=== PATIENT | female | born 1995 | race American Indian/Alaskan Native ===

== ENCOUNTER 2019-03-14 12:19 | Inpatient (IN) | payer MEDICAID ==
[2019-03-14] MEDS ORDERED: LACTATED RINGERS 1,000 ML IV ONE (12:29)
[2019-03-14 14:06] LABS: Bacteria,Urine 1+ /HPF (Negative); Bilirubin,Urine NEG (Negative); Blood,Urine NEG (Negative); Color,Urine Yellow (Yellow); Mucus,Urine FEW /HPF; Protein,Urine <15 mg/dL mg/dL (Negative); Urobilinogen,Urine < 2.0 mg/dL (<2.0)
[2019-03-14] MEDS ORDERED: BRETHINE SUB-Q ONE ×2 (14:24→16:16)
[2019-03-14 14:28] LABS: Amphetamine Screen,Urine PRESUMPTIVE NEGATIVE; Benzodiazepines Screen,Urine PRESUMPTIVE NEGATIVE; Cannabinoid Screen,Urine PRESUMPTIVE NEGATIVE; Cocaine Screen,Urine PRESUMPTIVE NEGATIVE; Methadone Screen,Urine PRESUMPTIVE NEGATIVE; Opiate Screen,Urine PRESUMPTIVE NEGATIVE
[2019-03-14] MEDS: LACTATED RINGERS 1,000 ML IV SCH (14:50)
[2019-03-14] MEDS ORDERED: CELESTONE SOLUSPAN IM ONE (15:38)
[2019-03-14] MEDS ORDERED: COLACE PO PRN (15:54)
[2019-03-14] MEDS ORDERED: TYLENOL PO PRN (15:54)
--- NOTE | 2019-03-14 15:59 | History and Physical Report ---
<DENISE PARK - Last Filed: 03/14/19 20:14> History of Present Illness Date of examination: 03/14/19 (walk-in prev c/s laboring; receiving care in [place]) Chief complaint: presents to Triage with c/o ctx History of present illness: Pt states she started her PNC in [place] in the first trimester and then moved to [place] in September. They established her EDC 04/25/19. SUKH signed and faxed to the office in [place]. Pt states her last PNV was 2 weeks ago. She has a doctors visit [facility] with a local OBGYN on 03-26-19 [facility] 2015 ectopic Lap done tube was saved 2017 section failure to dilate male baby medical HX: born with Hep B ( pt's mom is a carrier) Surgery hx: section Lap for ectopic Denies smoking, drinking, drug use Denies any other STD hx Past History - Obstetrical History Expected Date of Delivery: 04/25/19 Actual Gestation: 34 Week(s) 0 Day(s) : 3 Para: 1 Hx # Term Pregnancies: 1 Number of Pregnancies: 0 Spontaneous Abortions: 0 Induced : 1 (ectopic) Number of Living Children: 1 Medications and Allergies Allergies Allergy/AdvReac Type Severity Reaction Status Date / Time No Known Allergies Allergy Verified 03/14/19 12:26 Home Medications Medication Instructions Recorded Confirmed Last Taken Type Ascorbic Acid [Vitamin C] 0 mg PO QDAY 03/14/19 03/14/19 03/14/19 09:00 History 1 Iron [Iron 18 MG TAB] 18 mg PO QDAY 03/14/19 03/14/19 03/14/19 09:00 History 1 Vit-Fe Fumar-FA [ 1 tab PO QDAY 03/14/19 03/14/19 03/14/19 09:00 History Vitamin] Active Meds: Active Medications Acetaminophen (Tylenol) 650 mg PO Q4H PRN PRN Reason: Pain MILD(1-3)/Fever >100.5/RODRIGUEZ Betamethasone Acet/Betameth SodPhos (Celestone Soluspan) 12 mg IM Q24HR [facility] Stop: 03/16/19 10:01 Docusate Sodium (Colace) 100 mg PO Q12H PRN PRN Reason: Constipation Lactated Ringer's (Lactated Ringers) 1,000 mls @ 150 mls/hr IV DIRECT LEIGH ANN Last Admin: 03/14/19 14:50 Dose: 150 mls/hr Documented by: Multivitamins/Iron/Calcium ( Vitamin) 1 each PO QDAY LEIGH ANN - Vital Signs Vital signs: Vital Signs Pulse BP 84 124/68 03/14/19 13:22 03/14/19 13:22 Temp Pulse Resp BP Pulse Ox 98.3 F 70 18 111/57 03/14/19 14:56 03/14/19 15:03 03/14/19 14:56 03/14/19 15:03 - Physical Exam Breasts: Positive: deferred Cardiovascular: Regular rate, Normal S1, Normal S2 Lungs: Positive: Normal air movement Abdomen: Positive: normal appearance, soft, normal bowel sounds. Negative: distention, tenderness Vulva: both: normal Vagina: Positive: normal moisture. Negative: discharge Cervix: Negative: lesion, discharge Uterus: Positive: normal size, normal contour Adnexa: both: normal Anus/Rectum: Positive: normal perianal skin, heme negative. Negative: rectal mass, hemorrhoids Extremities: Positive: normal Deep Tendon Reflex Grade: Normal +2 - Obstetrical FHR: category 1 Uterine Contraction Monitor Mode: External Cervical Dilatation: 1.5 (pt does not tolerate cervical exam) Cervical Effacement Percentage: 10 (pt c/o pressure) station: -3 Uterine Contraction Frequency (min): q2-4 Uterine Contraction Pattern: Regular Uterine Tone Measurement Phase: Resting Uterine Contraction Intensity: Moderate Results Result Diagrams: 03/14/19 13:00 03/14/19 13:00 All other labs normal. Assessment and Plan 24yo @ 34 weeks with ctx Pt had OB care in [place] Had not established care here yet. Per lace stripper she noted some cervical chg. Pt ad mitted to APU for BMZ and evaluation. Ctx have spaced out after fluids and Terb X 2. US BPP 6/8 NST is reactive 8/10 BPP. Pt is a previous section. made aware of pt and status. Will continue observation. SUKH faxed to OB practice in [place]. Pt will remain APU until 2nd dose of BMZ is given tomorrow @ 1600. <STEVEN KAY - Last Filed: 03/14/19 22:15> Medications and Allergies Active Meds: Active Medications Acetaminophen (Tylenol) 650 mg PO Q4H PRN PRN Reason: Pain MILD(1-3)/Fever >100.5/RODRIGUEZ Betamethasone Acet/Betameth SodPhos (Celestone Soluspan) 12 mg IM Q24HR LEIGH ANN Stop: 03/15/19 16:01 Docusate Sodium (Colace) 100 mg PO Q12H PRN PRN Reason: Constipation Lactated Ringer's (Lactated Ringers) 1,000 mls @ 150 mls/hr IV DIRECT LEIGH ANN Last Admin: 03/14/19 14:50 Dose: 150 mls/hr Documented by: Multivitamins/Iron/Calcium ( Vitamin) 1 each PO QDAY LEIGH ANN Zolpidem Tartrate (Ambien) 10 mg PO QHS PRN PRN Reason: Insomnia - Vital Signs Vital signs: Vital Signs Pulse BP 84 124/68 03/14/19 13:22 03/14/19 13:22 Temp Pulse Resp BP Pulse Ox 97.1 F L 104 H 18 136/67 03/14/19 19:32 03/14/19 21:58 03/14/19 19:32 03/14/19 21:58 Results Result Diagrams: 03/14/19 13:00 03/14/19 13:00 Abnormal lab results 03/14/19 03/14/19 Range/Units 13:00 13:00 MCH 27 L (28-32) pg RDW 16.3 H (13.2-15.2) % [place] % (Auto) 7.6 H (0.0-7.3) % Creatinine 0.5 L (0.7-1.2) mg/dL Alkaline Phosphatase 134 H (35-129) units/L Albumin 3.7 L (3.9-5) g/dL All other labs normal. Assessment and Plan - Patient Problems (1) 34 weeks gestation of Current Visit: Yes Status: Acute (2) contractions Current Visit: Yes Status: Acute Plan to address problem: Continues to be uncomfortable with contractions, will start MgSO4 tocolysis with steroid therapy. MgSO4 side effects and risks explained. Plan of care discussed with patient, questions encouraged and answered. She voiced understanding and agrees with plan of care. (3) Hepatitis B carrier Current Visit: Yes Status: Acute Plan to address problem: See scanned labs in EMR LFT's normal here (4) Previous delivery, antepartum Current Visit: Yes Status: Acute
[2019-03-14 16:21] LABS: Basophils % (Auto) 0.6 % (0.0-1.8); Eosinophils % (Auto) 0.4 % (0.0-4.3); Hematocrit 34.7 % (30.3-42.9); Hemoglobin 11.4 gm/dl (10.1-14.3); Lymphocytes # (Auto) 1.3 K/mm3 (1.2-5.4); Lymphocytes % (Auto) 23.1 % (13.4-35.0); Mean Corpuscular HGB Conc 33 % (30-34); Mean Corpuscular Volume 83 fl (79-97); Monocytes # (Auto) 0.4 K/mm3 (0.0-0.8); Monocytes % (Auto) 7.6 % (0.0-7.3); Platelet Count 158 K/mm3 (140-440); Red Blood Count 4.19 M/mm3 (3.65-5.03); Red Cell Distribution Width 16.3 % (13.2-15.2)
[2019-03-14 16:37] LABS: Alanine Aminotransferase 19 units/L (7-56); Albumin 3.7 g/dL (3.9-5); BUN/Creatinine Ratio 14; Blood Urea Nitrogen 7 mg/dL (7-17); Hemolysis Index 0
[2019-03-14 16:59] LABS: Hepatitis C Virus Antibody Non-Reactive (NonReactive)
--- NOTE | 2019-03-14 18:53 | Ultrasound Report ---
PROCEDURE: US OB >= 14 WEEKS FETUS, US OB BPP WO NON-STRESS TECHNIQUE: Obstetrical sonographic imaging was performed HISTORY: labor COMPARISONS: None FINDINGS: Images demonstrate single live intrauterine gestation in cephalic presentation. By the end of the exa m, fetus is breech. Amniotic fluid is visually within normal limits. Fundal placenta grade 2. heart rate measures 144 bpm. Cervical length 3.6 cm. anatomic survey as follows: Choroid plexus, lateral ventricle, stomach, kidneys, bladder, diaphragm, four-chamber heart, heart, t hree-vessel cord, abdominal CORD insertion, spine. Following anatomic structures are not demonstrated due to lie-cerebellum and cisterna magna. measurements as follows: Biparietal diameter 34 weeks 4 days Head circumference 34 weeks 3 days Abdominal circumference 34 weeks 1 day Femur length 33 weeks 0 days HC/AC 1.0 Cephalic index 80.2. Estimated weight 2302 g. Clinical age 34 weeks 0 days Average sonographic gestational age 34 weeks 0 days with estimated due date 04/25/2019. Biophysical profile scores 2 for movements, posture and tone and qualitative WILBER. b reathing movements scored a 0. IMPRESSION: Biophysical profile score 6/8, 0 for breathing movements. Single live intrauterine gestation at 34 weeks 0 days, estimated due date 04/25/2019. heart rate 144 bpm. Cervical length 3.6 cm. Cephalic presentation changed to breech by the end of the exam. Fundal grade 2 placenta. Amniotic fluid visually within normal limits. This document is electronically signed by Joyce Tse MD., March 14 2019 06:52:00 PM ET
[2019-03-14] MEDS ORDERED: AMBIEN PO PRN (21:54)
[2019-03-14] MEDS ORDERED: MAGNESIUM SULFATE 4GM/100ML 4 GM/100 ML BAG IV ONE (22:04)
[2019-03-14] MEDS: MAGNESIUM SULFATE 40GM/1000ML 40 GM/1,000 ML BAG IV SCH (22:52)
--- NOTE | 2019-03-15 07:52 | Progress Note ---
Assessment and Plan 24y/o @ 34 weeks; currently w/o complaints. She denies feeling ctx, denies leaking or bleeding. Second dose of BMZ due 1600 today. Plan to continue mag sulfate x 24 h after second dose of steroids. Last mag level 4.6. encouraged pt to notify nurse for any s/s labor. Continue current management. - Patient Problems (1) 34 weeks gestation of Current Visit: Yes Status: Acute (2) contractions Current Visit: Yes Status: Acute (3) Previous delivery, antepartum Current Visit: Yes Status: Acute Subjective - Subjective Date of service: 03/15/19 Principal diagnosis: IUP @ 34w; prev c/s x 1, labor Patient reports: movement normal, no new complaints, no loss of fluid, no vaginal bleeding, no contractions Objective - Vital Signs Vital Signs: Vital Signs - 12hr 03/14/19 03/14/19 03/14/19 20:06 20:30 20:59 Temperature Pulse Rate 95 H 88 93 H Respiratory Rate Blood Pressure 117/57 131/67 123/57 O2 Sat by Pulse Oximetry 03/14/19 03/14/19 03/14/19 21:29 21:58 22:25 Temperature Pulse Rate 100 H 104 H 96 H Respiratory Rate Blood Pressure 134/69 136/67 133/64 O2 Sat by Pulse Oximetry 03/14/19 03/14/19 03/14/19 22:28 22:30 22:31 Temperature 97.8 F Pulse Rate 91 H 93 H Respiratory 18 Rate Blood Pressure 123/59 123/63 O2 Sat by Pulse Oximetry 03/14/19 03/14/19 03/14/19 22:33 22:35 22:38 Temperature 97.1 F L 97.3 F L Pulse Rate 96 H Respiratory 18 16 Rate Blood Pressure 127/63 O2 Sat by Pulse Oximetry 03/14/19 03/14/19 03/14/19 22:40 22:41 22:45 Temperature Pulse Rate 100 H 100 H 102 H Respiratory Rate Blood Pressure 122/64 129/63 O2 Sat by Pulse 98 93 Oximetry 03/14/19 03/14/19 03/14/19 22:46 22:48 22:51 Temperature 97.4 F L Pulse Rate 104 H 100 H Respiratory 18 Rate Blood Pressure 135/62 O2 Sat by Pulse 98 97 Oximetry 03/14/19 03/14/19 03/14/19 22:56 23:01 23:06 Temperature Pulse Rate 95 H 99 H 96 H Respiratory Rate Blood Pressure O2 Sat by Pulse 98 98 98 Oximetry 03/14/19 03/14/19 03/14/19 23:09 23:11 23:16 Temperature Pulse Rate 93 H 105 H 90 Respiratory Rate Blood Pressure 123/64 O2 Sat by Pulse 98 98 Oximetry 03/14/19 03/14/19 03/14/19 23:21 23:24 23:26 Temperature Pulse Rate 98 H 85 93 H Respiratory Rate Blood Pressure 115/59 O2 Sat by Pulse 99 99 Oximetry 03/14/19 03/14/19 03/14/19 23:31 23:36 23:40 Temperature Pulse Rate 88 81 81 Respiratory Rate Blood Pressure 128/62 O2 Sat by Pulse 98 99 Oximetry 03/14/19 03/14/19 03/14/19 23:41 23:46 23:51 Temperature Pulse Rate 81 81 84 Respiratory Rate Blood Pressure O2 Sat by Pulse 99 99 100 Oximetry 03/14/19 03/14/19 03/15/19 23:54 23:56 00:01 Temperature Pulse Rate 78 83 87 Respiratory Rate Blood Pressure 128/62 O2 Sat by Pulse 100 100 Oximetry 03/15/19 03/15/19 03/15/19 00:06 00:09 00:11 Temperature Pulse Rate 83 86 96 H Respiratory Rate Blood Pressure 129/69 O2 Sat by Pulse 99 98 Oximetry 03/15/19 03/15/19 03/15/19 00:16 00:21 00:24 Temperature Pulse Rate 79 83 83 Respiratory Rate Blood Pressure 124/67 O2 Sat by Pulse 98 99 Oximetry 03/15/19 03/15/19 03/15/19 00:26 00:31 00:36 Temperature Pulse Rate 90 86 81 Respiratory Rate Blood Pressure O2 Sat by Pulse 100 100 100 Oximetry 03/15/19 03/15/19 03/15/19 00:41 00:46 00:51 Temperature Pulse Rate 85 86 84 Respiratory Rate Blood Pressure 110/60 O2 Sat by Pulse 100 99 99 Oximetry 03/15/19 03/15/19 03/15/19 00:54 00:56 01:01 Temperature Pulse Rate 83 80 91 H Respiratory Rate Blood Pressure 106/58 O2 Sat by Pulse 100 100 Oximetry 03/15/19 03/15/19 03/15/19 01:06 01:10 01:11 Temperature Pulse Rate 91 H 84 83 Respiratory Rate Blood Pressure 117/56 O2 Sat by Pulse 96 100 Oximetry 03/15/19 03/15/19 03/15/19 01:16 01:21 01:24 Temperature Pulse Rate 83 82 89 Respiratory Rate Blood Pressure 117/66 O2 Sat by Pulse 100 99 88 Oximetry 03/15/19 03/15/19 03/15/19 01:26 01:31 01:36 Temperature Pulse Rate 83 77 85 Respiratory Rate Blood Pressure O2 Sat by Pulse 99 98 98 Oximetry 03/15/19 03/15/19 03/15/19 01:39 01:41 01:46 Temperature Pulse Rate 83 86 90 Respiratory Rate Blood Pressure 112/55 O2 Sat by Pulse 93 99 Oximetry 03/15/19 03/15/19 03/15/19 01:51 01:54 01:56 Temperature Pulse Rate 87 118 H 86 Respiratory Rate Blood Pressure 127/58 O2 Sat by Pulse 98 97 Oximetry 03/15/19 03/15/19 03/15/19 02:01 02:06 02:10 Temperature Pulse Rate 78 77 80 Respiratory Rate Blood Pressure 124/72 O2 Sat by Pulse 98 97 Oximetry 03/15/19 03/15/19 03/15/19 02:11 02:16 02:21 Temperature Pulse Rate 83 80 75 Respiratory Rate Blood Pressure O2 Sat by Pulse 100 99 99 Oximetry 03/15/19 03/15/19 03/15/19 02:26 02:31 02:36 Temperature Pulse Rate 78 82 78 Respiratory Rate Blood Pressure 110/66 O2 Sat by Pulse 99 97 96 Oximetry 03/15/19 03/15/19 03/15/19 02:39 02:41 02:46 Temperature Pulse Rate 77 82 73 Respiratory Rate Blood Pressure 108/57 O2 Sat by Pulse 96 96 Oximetry 03/15/19 03/15/19 03/15/19 02:51 02:54 02:56 Temperature Pulse Rate 76 77 81 Respiratory Rate Blood Pressure 108/57 O2 Sat by Pulse 95 96 Oximetry 03/15/19 03/15/19 03/15/19 03:01 03:06 03:09 Temperature Pulse Rate 81 107 H 81 Respiratory Rate Blood Pressure 122/61 O2 Sat by Pulse 97 98 Oximetry 03/15/19 03/15/1919 03:11 03:16 03:21 Temperature Pulse Rate 79 73 71 Respiratory Rate Blood Pressure O2 Sat by Pulse 98 98 98 Oximetry 03/15/19 03/15/19 03/15/19 03:24 03:26 03:31 Temperature Pulse Rate 78 72 85 Respiratory Rate Blood Pressure 115/59 O2 Sat by Pulse 97 99 Oximetry 03/15/19 03/15/19 03/15/19 03:36 03:40 03:41 Temperature 98.3 F Pulse Rate 78 68 66 Respiratory 16 Rate Blood Pressure 109/57 O2 Sat by Pulse 96 100 Oximetry 03/15/19 03/15/19 03/15/19 03:46 03:51 03:54 Temperature Pulse Rate 94 H 74 76 Respiratory Rate Blood Pressure 116/71 O2 Sat by Pulse 99 96 Oximetry 03/15/19 03/15/19 03/15/19 03:56 04:01 04:06 Temperature Pulse Rate 71 77 80 Respiratory Rate Blood Pressure O2 Sat by Pulse 100 97 97 Oximetry 03/15/19 03/15/19 03/15/19 04:09 04:11 04:16 Temperature Pulse Rate 76 82 75 Respiratory Rate Blood Pressure 105/55 O2 Sat by Pulse 97 96 Oximetry 03/15/19 03/15/19 03/15/19 04:21 04:24 04:26 Temperature Pulse Rate 76 77 73 Respiratory Rate Blood Pressure 111/57 O2 Sat by Pulse 97 97 Oximetry 03/15/19 03/15/19 03/15/19 04:31 04:36 04:39 Temperature Pulse Rate 76 71 76 Respiratory Rate Blood Pressure 109/58 O2 Sat by Pulse 97 97 Oximetry 03/15/19 03/15/19 03/15/19 04:41 04:46 04:51 Temperature Pulse Rate 77 78 78 Respiratory Rate Blood Pressure O2 Sat by Pulse 96 97 97 Oximetry 03/15/19 03/15/19 03/15/19 04:54 04:56 05:01 Temperature Pulse Rate 71 70 75 Respiratory Rate Blood Pressure 113/62 O2 Sat by Pulse 94 96 97 Oximetry 03/15/19 03/15/19 03/15/19 05:06 05:10 05:11 Temperature Pulse Rate 72 75 78 Respiratory Rate Blood Pressure 113/58 O2 Sat by Pulse 97 94 97 Oximetry 03/15/19 03/15/19 03/15/19 05:16 05:21 05:25 Temperature Pulse Rate 81 80 71 Respiratory Rate Blood Pressure 107/60 O2 Sat by Pulse 96 98 Oximetry 03/15/19 03/15/19 03/15/19 05:26 05:31 05:36 Temperature Pulse Rate 76 78 77 Respiratory Rate Blood Pressure O2 Sat by Pulse 97 97 97 Oximetry 03/15/19 03/15/19 03/15/19 05:39 05:41 05:46 Temperature Pulse Rate 76 74 75 Respiratory Rate Blood Pressure 113/55 O2 Sat by Pulse 97 97 Oximetry 03/15/19 03/15/19 03/15/19 05:51 05:54 05:56 Temperature Pulse Rate 81 71 72 Respiratory Rate Blood Pressure 117/59 O2 Sat by Pulse 98 97 Oximetry 03/15/19 03/15/19 03/15/19 06:01 06:06 06:10 Temperature Pulse Rate 76 85 68 Respiratory Rate Blood Pressure 118/60 O2 Sat by Pulse 97 99 Oximetry 03/15/19 03/15/19 03/15/19 06:11 06:12 06:16 Temperature 98.4 F Pulse Rate 71 72 Respiratory 18 Rate Blood Pressure O2 Sat by Pulse 98 99 Oximetry 03/15/19 03/15/19 03/15/19 06:19 06:21 06:25 Temperature Pulse Rate 93 H 82 74 Respiratory Rate Blood Pressure 109/64 O2 Sat by Pulse 91 100 Oximetry 03/15/19 03/15/19 03/15/19 06:26 06:31 06:36 Temperature Pulse Rate 79 71 69 Respiratory Rate Blood Pressure O2 Sat by Pulse 99 100 99 Oximetry 03/15/19 03/15/19 03/15/19 06:39 06:41 06:46 Temperature Pulse Rate 91 H 76 80 Respiratory Rate Blood Pressure 119/66 O2 Sat by Pulse 99 99 Oximetry 03/15/19 03/15/19 03/15/19 06:51 06:55 06:56 Temperature Pulse Rate 86 77 79 Respiratory Rate Blood Pressure 117/68 O2 Sat by Pulse 98 98 Oximetry 03/15/19 03/15/19 03/15/19 07:01 07:06 07:09 Temperature Pulse Rate 78 74 80 Respiratory Rate Blood Pressure 120/67 O2 Sat by Pulse 98 98 Oximetry 03/15/19 03/15/19 03/15/19 07:11 07:16 07:21 Temperature Pulse Rate 80 80 83 Respiratory Rate Blood Pressure O2 Sat by Pulse 98 97 98 Oximetry 03/15/19 03/15/19 03/15/19 07:24 07:26 07:31 Temperature Pulse Rate 85 89 90 Respiratory Rate Blood Pressure 126/69 O2 Sat by Pulse 98 97 Oximetry 03/15/19 03/15/19 03/15/19 07:36 07:39 07:41 Temperature Pulse Rate 82 78 80 Respiratory Rate Blood Pressure 120/66 O2 Sat by Pulse 96 99 Oximetry - Exam Breasts: normal Cardiovascular: Regular rate Lungs: Clear to auscultation, Normal air movement Abdomen: Present: normal appearance, soft Vulva: both: normal Uterus: Present: normal FHR: auscultation normal, category 1 Uterine Contraction Monitor Mode: External Uterine Contraction Frequency (min): 8-11 Uterine Contraction Duration: 50 Uterine Contraction Pattern: Irregular Uterine Tone Measurement Phase: Contraction Uterine Contraction Intensity: Mild Extremities: normal Deep Tendon Reflex Grade: Normal +2 - Labs Labs: Abnormal Labs 03/14/19 03/14/19 03/15/19 13:00 13:00 06:22 MCH 27 L RDW 16.3 H [place] % (Auto) 7.6 H Creatinine 0.5 L Magnesium 4.60 H Alkaline Phosphatase 134 H Albumin 3.7 L Laboratory Results - last 24 hr 03/14/19 03/14/19 03/14/19 12:29 13:00 13:00 WBC 5.6 RBC 4.19 Hgb 11.4 Hct 34.7 MCV 83 MCH 27 L MCHC 33 RDW 16.3 H Plt Count 158 Lymph % (Auto) 23.1 [place] % (Auto) 7.6 H Eos % (Auto) 0.4 Baso % (Auto) 0.6 Lymph # 1.3 [place] # 0.4 Eos # 0.0 Baso # 0.0 Seg Neutrophils % 68.3 Seg Neutrophils # 3.8 Sodium 137 Potassium 3.8 Chloride 100.8 Carbon Dioxide 22 Anion Gap 18 BUN 7 Creatinine 0.5 L Estimated GFR > 60 BUN/Creatinine Ratio 14 Glucose 72 Calcium 9.0 Magnesium Total Bilirubin 0.30 AST 18 ALT 19 Alkaline Phosphatase 134 H Total Protein 7.2 Albumin 3.7 L Albumin/Globulin Ratio 1.1 Urine Color Yellow Urine Turbidity Clear Urine pH 7.0 Ur Specific [place] 1.014 Urine Protein <15 mg/dl Urine Glucose (UA) Neg Urine Ketones Neg Urine Blood Neg Urine Nitrite Neg Urine Bilirubin Neg Urine Urobilinogen < 2.0 Ur Leukocyte Esterase Neg Urine WBC (Auto) 2.0 Urine RBC (Auto) 2.0 U Epithel Cells (Auto) 1.0 Urine Bacteria (Auto) 1+ Urine Mucus Few Urine Opiates Screen Urine Methadone Screen Ur Barbiturates Screen Ur Phencyclidine Scrn Ur Amphetamines Screen U Benzodiazepines Scrn Urine Cocaine Screen U Marijuana (THC) Screen Drugs of Abuse Note Hep Bs Antigen Hepatitis C Antibody HIV 1&2 Antibody Rapid HIV P24 Antigen Rubella IgG Antibody Blood Type Antibody Screen 03/14/19 03/14/19 03/14/19 13:00 13:00 13:00 WBC RBC Hgb Hct MCV MCH MCHC RDW Plt Count Lymph % (Auto) [place] % (Auto) Eos % (Auto) Baso % (Auto) Lymph # [place] # Eos # Baso # Seg Neutrophils % Seg Neutrophils # Sodium Potassium Chloride Carbon Dioxide Anion Gap BUN Creatinine Estimated GFR BUN/Creatinine Ratio Glucose Calcium Magnesium Total Bilirubin AST ALT Alkaline Phosphatase Total Protein Albumin Albumin/Globulin Ratio Urine Color Urine Turbidity Urine pH Ur Specific [place] Urine Protein Urine Glucose (UA) Urine Ketones Urine Blood Urine Nitrite Urine Bilirubin Urine Urobilinogen Ur Leukocyte Esterase Urine WBC (Auto) Urine RBC (Auto) U Epithel Cells (Auto) Urine Bacteria (Auto) Urine Mucus Urine Opiates Screen Urine Methadone Screen Ur Barbiturates Screen Ur Phencyclidine Scrn Ur Amphetamines Screen U Benzodiazepines Scrn Urine Cocaine Screen U Marijuana (THC) Screen Drugs of Abuse Note Hep Bs Antigen Reactive Hepatitis C Antibody Non-reactive HIV 1&2 Antibody Rapid HIV P24 Antigen Rubella IgG Antibody Immune Blood Type O POSITIVE Antibody Screen Negative 03/14/19 03/14/19 03/15/19 13:00 Unknown 06:22 WBC RBC Hgb Hct MCV MCH MCHC RDW Plt Count Lymph % (Auto) [place] % (Auto) Eos % (Auto) Baso % (Auto) Lymph # [place] # Eos # Baso # Seg Neutrophils % Seg Neutrophils # Sodium Potassium Chloride Carbon Dioxide Anion Gap BUN Creatinine Estimated GFR BUN/Creatinine Ratio Glucose Calcium Magnesium 4.60 H Total Bilirubin AST ALT Alkaline Phosphatase Total Protein Albumin Albumin/Globulin Ratio Urine Color Urine Turbidity Urine pH Ur Specific [place] Urine Protein Urine Glucose (UA) Urine Ketones Urine Blood Urine Nitrite Urine Bilirubin Urine Urobilinogen Ur Leukocyte Esterase Urine WBC (Auto) Urine RBC (Auto) U Epithel Cells (Auto) Urine Bacteria (Auto) Urine Mucus Urine Opiates Screen Presumptive negative Urine Methadone Screen Presumptive negative Ur Barbiturates Screen Presumptive negative Ur Phencyclidine Scrn Presumptive negative Ur Amphetamines Screen Presumptive negative U Benzodiazepines Scrn Presumptive negative Urine Cocaine Screen Presumptive negative U Marijuana (THC) Screen Presumptive negative Drugs of Abuse Note Disclamer Hep Bs Antigen Hepatitis C Antibody HIV 1&2 Antibody Rapid Non react HIV P24 Antigen Non react Rubella IgG Antibody Blood Type Antibody Screen
[2019-03-15] MEDS: LACTATED RINGERS 1,000 ML IV SCH (08:45)
[2019-03-15] MEDS: PRENATAL VITAMIN PO SCH (10:37)
[2019-03-15] MEDS ORDERED: CELESTONE SOLUSPAN IM SCH (16:00)
[2019-03-15] MEDS: MAGNESIUM SULFATE 40GM/1000ML 40 GM/1,000 ML BAG IV SCH (18:57)
--- NOTE | 2019-03-16 08:56 | Progress Note ---
Assessment and Plan - Patient Problems (1) 34 weeks gestation of Current Visit: Yes Status: Acute (2) contractions Current Visit: Yes Status: Acute Plan to address problem: Will d/c MgSO4 at 1300, allow home if stable w/o cervical change at ~1800, cat 1 FHT's and no UC's. Plan of care discussed, questions were encouraged and answered. She voiced understanding and agrees with plan of care. (3) Hepatitis B carrier Current Visit: Yes Status: Acute (4) Previous delivery, antepartum Current Visit: Yes Status: Acute Subjective - Subjective Date of service: 03/16/19 Principal diagnosis: IUP @ 34 2/7w; prev c/s x 1, labor, hep b + Interval history: No complaints, feels much better. +fm Patient reports: movement normal, no new complaints, no loss of fluid, no vaginal bleeding, no contractions Objective - Vital Signs Vital Signs: Vital Signs - 12hr 03/15/19 03/15/19 03/15/19 21:41 21:44 22:40 Temperature Pulse Rate 89 84 87 Respiratory Rate Blood Pressure 117/55 127/58 O2 Sat by Pulse 85 Oximetry 03/15/19 03/15/19 03/15/19 22:46 23:40 23:54 Temperature Pulse Rate 81 87 Respiratory Rate Blood Pressure 121/53 O2 Sat by Pulse 94 86 Oximetry 03/15/19 03/16/19 03/16/19 23:55 00:06 00:40 Temperature Pulse Rate 89 86 74 Respiratory Rate Blood Pressure 108/59 O2 Sat by Pulse 89 99 Oximetry 03/16/19 03/16/19 03/16/19 01:35 01:40 02:40 Temperature Pulse Rate 83 79 Respiratory Rate Blood Pressure 117/63 118/62 O2 Sat by Pulse 84 Oximetry 03/16/19 03/16/19 03/16/19 03:00 03:40 04:40 Temperature 98.4 F Pulse Rate 71 72 Respiratory 20 Rate Blood Pressure 114/57 104/55 O2 Sat by Pulse Oximetry 03/16/19 03/16/19 03/16/19 05:40 06:29 06:41 Temperature Pulse Rate 68 71 Respiratory 18 Rate Blood Pressure 105/58 111/59 O2 Sat by Pulse Oximetry 03/16/19 03/16/19 07:42 08:40 Temperature Pulse Rate 66 83 Respiratory Rate Blood Pressure 117/57 122/70 O2 Sat by Pulse Oximetry - Exam Breasts: deferred Cardiovascular: Regular rate Lungs: Clear to auscultation, Normal air movement Abdomen: Present: soft. Absent: tenderness, guarding Uterus: Present: fundal height above umbilicus. Absent: tenderness FHR: category 1 Uterine Contraction Monitor Mode: External Uterine Contraction Pattern: Absent Extremities: normal - Labs Labs: Abnormal Labs 03/14/19 03/14/19 03/15/19 13:00 13:00 06:22 MCH 27 L RDW 16.3 H [place] % (Auto) 7.6 H Creatinine 0.5 L Magnesium 4.60 H Alkaline Phosphatase 134 H Albumin 3.7 L 03/15/19 03/15/19 03/16/19 12:50 17:40 00:30 MCH RDW [place] % (Auto) Creatinine Magnesium 5.20 H 5.30 H 5.10 H Alkaline Phosphatase Albumin Laboratory Results - last 24 hr 03/14/19 03/15/19 03/15/19 13:00 12:50 17:40 Magnesium 5.20 H 5.30 H RPR Nonreactive 03/16/19 00:30 Magnesium 5.10 H RPR
[2019-03-16] MEDS: PRENATAL VITAMIN PO SCH (10:41)
--- NOTE | 2019-03-16 12:54 | Event Note ---
Date: 03/16/19 Assessment and Plan - Patient Problems (1) 34 weeks gestation of Current Visit: Yes Status: Acute (2) contractions Current Visit: Yes Status: Acute (3) Hepatitis B carrier Current Visit: Yes Status: Acute (4) Previous delivery, antepartum Current Visit: Yes Status: Acute (5) Alpha thalassemia silent carrier Current Visit: Yes Status: Acute
[2019-03-16 16:41] VITALS: BP 118/61
== END 2019-03-16 18:00 | disposition home or self-care (01) | DRG 832 ==
LOC: TRG 12:19 → LD 15:48 → TRG 15:48 → LD 03-15 16:35
PROVIDERS: ADMIT Obstetrics & Gynecology; ATTEND Obstetrics & Gynecology
DX: O60.03 Preterm labor without delivery, third trimester (principal); O99.830 Other infection carrier state complicating pregnancy; Z3A.34 34 weeks gestation of pregnancy
CPT/HCPCS: 36415; 59025; 76805; 76819; 80053; 80307; 81001; 83735; 85025; 86592; 86706; 86762; 86803; 86850; 86900; 86901; 87806; 96360; 96361; 96372; G0378; J0702; J3105; J3475; J7120

== ENCOUNTER 2019-04-19 09:06 | Inpatient (IN) | payer MEDICAID ==
--- NOTE | 2019-04-15 12:25 | History and Physical Report ---
History of Present Illness Date of examination: 04/15/19 Date of admission: 04/19/2019 Chief complaint: here for c/s History of present illness: Pt presents for pre op for scheduled c/s. All risks, benefits, and alternatives were d/w pt and questions were addressed and answered. Consents signed and placed on the chart. Pt c/o vaginal irritation which appears to be jock itch vs yeast. Will treat accordingly today. EDC Calculations LMP: 05/19/2019 EDC Confirmation: 05/19/2019 Gestational Age: 32 1/7 weeks Past History : 3 Term Births: 1 Premature Births: 0 Living Children: 1 Para: 1 Mult. Births: 0 Prev : 1 Prev. attempt? none Aborta: 1 Elect. Ab: 0 Spont. 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 lives with sister and child unemployed denies etoh, tobacco, drug use Infection History Hx of STD: none HIV Risk Eval: low risk Personal hx. of genital herpes: no Partner hx. of genital herpes: no Rash, Viral, or Febrile illness since last LMP? no Varicella/Chicken Pox Status: Unknown TB Risk: no Infection History Comments: +hep B Genetic History Congenital Heart Defect: Mom: no Dad: no Marian Disease: Mom: no Dad: no Thalassemia Mom: no Dad: no Neural Tube Defect Mom: no Dad: no Down's Syndrome Mom: no Dad: no Siddharth-Sachs Mom: no Dad: no Sickle Cell Disease/Trait Mom: no Dad: no Hemophilia Mom: no Dad: no Muscular Dystrophy Mom: no Dad: no Cystic Fibrosis Mom: no Dad: no Joy Chorea Mom: no Dad: no Mental Retardation Mom: no Dad: no Fragile X Mom: no Dad: no Other Genetic/Chromosomal Disorder Mom: no Dad: no Child w/other defect Mom: no Dad: no Enviromental Exposures Enviromental Exposures Reviewed Xray Exposure: no Medication, drug, or alcohol use since LMP: no Chemical/Other Exposure: no Exposure to Cat Liter: no Hx of Parvovirus (Fifth Disease): no Occupational Exposure to Children: none Active Medications (reviewed today): VITAMIN C TABS () IRON TABS () VITAMINS () Current Allergies: No known allergies Past History Past Medical History: other (HepB positive- no treatment this due to limited PNC) 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 Social history: no significant social history, single - Obstetrical History Expected Date of Delivery: 04/25/19 Actual Gestation: 38 Week(s) 4 Day(s) : 3 Para: 1 Number of Living Children: 1 Medications and Allergies Allergies Allergy/AdvReac Type Severity Reaction Status Date / Time No Known Allergies Allergy Verified 03/14/19 12:26 Home Medications Medication Instructions Recorded Confirmed Last Taken Type Ascorbic Acid [Vitamin C] 0 mg PO QDAY 03/14/19 03/14/19 03/14/19 09:00 History 1 Iron [Iron 18 MG TAB] 18 mg PO QDAY 03/14/19 03/14/19 03/14/19 09:00 History 1 Vit-Fe Fumar-FA [ 1 tab PO QDAY 03/14/19 03/14/19 03/14/19 09:00 History Vitamin] Review of Systems All systems: negative - Physical Exam Breasts: Positive: deferred Cardiovascular: Normal S1, Normal S2 Lungs: Positive: Clear to auscultation, Normal air movement Abdomen: Positive: normal appearance, soft. Negative: tenderness, guarding Genitourinary (Female): Positive: normal external genitalia, normal perenium, other (+rash in groin bilaterally extending to inner buttocks) Vulva: right: normal (see above) Cervix: Positive: other (deferred) - Obstetrical FHR: auscultation normal Results All other labs normal. Assessment and Plan - Patient Problems (1) Encounter for maternal care for low transverse scar from previous delivery Status: Acute Plan to address problem: -prepare for c/s -consents signed and placed on the chart (2) 39 weeks gestation of Status: Acute Plan to address problem: -currently 38 4/ but will be 39 weeks at time of c/s (3) Alpha thalassemia silent carrier Status: Acute (4) Hepatitis B carrier Status: Acute Plan to address problem: -no treatment this as she did not seek early PNC and did not see mfm until 04/04/2019 after being seen in our office for the 1st time -will make peds aware at time of delivery
[~2019-04-19 09:06] MED LIST: ANCEF/STERILE WATER 2 GM/20 ML 2 GM/20 ML SYRINGE IV NR; BICITRA PO SCH; EMLA TP PRN; LACTATED RINGERS 1,000 ML IV SCH; PEPCID IV ONE; PITOCin/NS 20 UNIT/1000ML DRIP 20 UNITS/1,000 ML BAG IV SCH; REGLAN IV SCH
[2019-04-19 10:06] LABS: Basophils % (Auto) 0.3 % (0.0-1.8); Eosinophils % (Auto) 0.4 % (0.0-4.3); Hematocrit 33.8 % (30.3-42.9); Hemoglobin 11.2 gm/dl (10.1-14.3); Lymphocytes # (Auto) 1.5 K/mm3 (1.2-5.4); Lymphocytes % (Auto) 23.6 % (13.4-35.0); Mean Corpuscular HGB Conc 33 % (30-34); Mean Corpuscular Volume 81 fl (79-97); Monocytes # (Auto) 0.5 K/mm3 (0.0-0.8); Monocytes % (Auto) 7.1 % (0.0-7.3); Platelet Count 170 K/mm3 (140-440); Red Blood Count 4.17 M/mm3 (3.65-5.03); Red Cell Distribution Width 16.1 % (13.2-15.2)
[2019-04-19] MEDS ORDERED: PEPCID IV ONE (11:06)
--- NOTE | 2019-04-19 12:03 | Anesthesia Consultation ---
Anesthesia Consult and Med Hx Date of service: 04/19/19 - Airway Anesthetic Teeth Evaluation: Good ROM Head & Neck: Adequate Mental/Hyoid Distance: Adequate Mallampati Class: Class II Intubation Access Assessment: Probably Good - Pulmonary Exam CTA: Yes - Cardiac Exam Cardiac Exam: RRR - Pre-Operative Health Status ASA Pre-Surgery Classification: ASA2 Proposed Anesthetic Plan: Spinal - Pulmonary Hx Smoking: No Hx Asthma: No Hx Respiratory Symptoms: No SOB: No COPD: No Home Oxygen Therapy: No Hx Pneumonia: No Hx Sleep Apnea: No - Cardiovascular System Hx Hypertension: No Hx Coronary Artery Disease: No Hx Heart Attack/AMI: No Hx Angina: No (heart palpitasions- was told with her first ) Hx Percutaneous Transluminal Coronary Angioplasty (PTCA): No Hx Cardia Arrhythmia: No (heart palpitation with first ) Hx Pacemaker: No Hx Internal Defibrillator: No Hx Valvular Heart Disease: No Hx Heart Murmur: No Hx Peripheral Vascular Disease: No - Central Nervous System Hx Neuromuscular Disorder: No Hx Seizures: No CVA: No Hx Back Pain: Yes Hx Psychiatric Problems: No - Gastrointestinal Hx Ulcer: No Hx Gastroesophageal Reflux Disease: Yes - Endocrine Hx Renal Disease: No Hx End Stage Renal Disease: No Hx Hypothyroidism: No Hx Hyperthyroidism: No - Hematic Hx Anemia: No (hep B POSITIVE) Hx Sickle Cell Disease: No - Other Systems Hx Alcohol Use: No Hx Substance Use: No Hx Cancer: No Hx Obesity: Yes ( bmi 36)
[2019-04-19] MEDS ORDERED: PHENERGAN PR PRN (12:04)
[2019-04-19] MEDS ORDERED: DILAUDID IV PRN ×2 (12:04)
[2019-04-19] MEDS ORDERED: BENADRYL IV PRN (12:04)
[2019-04-19] MEDS ORDERED: PHENERGAN PO PRN (12:04)
[2019-04-19] MEDS ORDERED: ZOFRAN IV PRN (12:04)
--- NOTE | 2019-04-19 12:04 | Anesthesia Day of Surgery ---
Anesthesia Day of Surgery - Day of Surgery Patient Examined: Yes Patient H&P Reviewed: Yes Patient is NPO: Yes Beta Blockers: No Cardiac Clearance: No Pulmonary Clearance: No Herrera's Test: N/A
[2019-04-19] MEDS ORDERED: NACL 0.9% IR ONE (12:45)
[2019-04-19] MEDS ORDERED: WATER FOR IRRIG STERILE IR ONE (12:45)
[2019-04-19] MEDS ORDERED: SODIUM CHLORIDE FLUSH SYRINGE 10 ML IV NR (13:00)
[2019-04-19] MEDS ORDERED: ZOFRAN ONE (13:11)
[2019-04-19] MEDS ORDERED: VERSED ONE (13:33)
[2019-04-19] MEDS ORDERED: TORADOL ONE (13:33)
[2019-04-19] MEDS ORDERED: SUBLIMAZE ONE (13:33)
--- NOTE | 2019-04-19 13:43 | Operative Report ---
Operative Report Operative Report: Date of procedure: 04/19/2019 Pre-operative diagnosis: 39 weeks gestation Previous 1 Post-operative diagnosis: Same Procedure name(s): Repeat low transverse section via Pfannenstiel skin incision Surgeon: Dr. Nieto Accounting Manager Cpa: HANNAH Anesthesia: Combined spinal epidural EBL: 800 mL Urine output: 200 mL of clear urine out at the end of procedure Fluids: 700 mL Findings: Liveborn female weight 7 lbs. 4 oz. Apgars of 8 and 9 at one and 5 minutes Grossly normal fallopian tubes and ovaries bilaterally Normal uterus Indications: Patient presents for scheduled section. All risks benefits and alternatives were discussed with the patient. Consents were signed and placed on the chart. Procedure: Patient was taking to the operating room. Patient was then prepped and draped in sterile fashion after anesthesia was found to be adequate. A low transverse skin incision was made with the scalpel through previous incisional scar and carried down to the underlying layer of fascia with the Bovie. The fascia was then incised in the midline and this incision was extended bilaterally with the Bovie. The superior aspect of the fascia was grasped with Kavita clamps tented upward and dissected off of the anterior rectus muscles with the scalpel. In similar fashion the inferior aspect of the fascia was grasped with Kavita clamps tented upward and dissected off of the anterior rectus muscles. The rectus muscles were then bluntly divided in the midline. The peritoneum was identified and entered into sharply. Kurt retractor was placed The bladder blade was placed. A lower transverse uterine incision was made with the scalpel and extended bilaterally with the bandage scissors. Artificial rupture of membranes was performed yielding clear amniotic fluid. The infant's head was then delivered atraumatically. The anterior shoulder and rest of infant delivered without difficulty. The umbilical cord was clamped x2. The cord was cut. The was then placed in sterile bassinet. The cord blood was collected. The placenta was manually extracted in its entirety. The uterus was exteriorized and cleared of all clots and debris. The uterine incision was closed using 0 Vicryl in a running locking fashion. Several [id number] sutures were used along the uterine incision to secure excellent hemostasis. The posterior cul-de-sac was copiously irrigated. The uterus was returned to the abdomen. The gutters were also irrigated. Tisseel was placed over the uterine incision with excellent hemostasis noted The anterior rectus muscles were reapproximated using 3-0 Vicryl. The anterior rectus fascia was reapproximated using 0 Vicryl in a running fashion. The subcuticular fat was reapproximated using 2-0 Vicryl in a running fashion. The skin was reapproximated with 4-0 Monocryl in a subcuticular stitch. The patient tolerated the procedure well. Sponge lap and needle counts were all correct x3. Patient was taken to the recovery room awake and in stable condition.
[2019-04-19] MEDS ORDERED: NARCAN 0.4 MG/1 ML IV PRN (13:45)
[2019-04-19] MEDS ORDERED: MYLICON PO PRN (13:45)
[2019-04-19] MEDS ORDERED: LANSINOH TP PRN (13:45)
[2019-04-19] MEDS ORDERED: TUCKS PAD TP PRN (13:45)
--- NOTE | 2019-04-19 13:45 | Post Anesthesia Evaluation ---
- Post Anesthesia Evaluation Patient Participated: Yes Airway Patent: Yes Stable Respiratory Function: Yes Nausea/Vomiting: No Temp > 96.8F: Yes Pain Manageable: Yes Adequeate Hydration: Yes Anesthesia Complications: No Block Receding Appropriately: Yes Patient on Ventilator: No
[2019-04-19] MEDS ORDERED: ANCEF/NS 1 GM/50 ML 1 GM/50 ML BAG IV SCH (14:00)
[2019-04-19] MEDS: TORADOL IV PRN ×2 (15:58→20:29)
[2019-04-19] MEDS: D5LR 1,000 ML IV SCH (16:05)
[2019-04-20] MEDS: D5LR 1,000 ML IV SCH (00:56)
[2019-04-20] MEDS: TORADOL IV PRN (01:04)
[2019-04-20 02:40] LABS: Hematocrit 29.7 % (30.3-42.9); Hemoglobin 9.9 gm/dl (10.1-14.3)
[2019-04-20] MEDS ORDERED: ANCEF/NS 1 GM/50 ML 1 GM/50 ML BAG IV SCH (05:00)
[2019-04-20] MEDS: FEOSOL PO SCH (09:04)
[2019-04-20] MEDS: IBUPROFEN PO PRN (09:04)
[2019-04-20] MEDS: PRENATAL VITAMIN PO SCH (09:04)
--- NOTE | 2019-04-20 09:50 | Progress Note ---
Assessment and Plan continue post c/s pathway - Patient Problems (1) delivery delivered Current Visit: Yes Status: Acute (2) Hepatitis B carrier Current Visit: No Status: Acute (3) Previous delivery, antepartum Current Visit: No Status: Acute (4) Anemia Current Visit: Yes Status: Acute Qualifiers: Other causes of anemia: acute posthemorrhagic Plan to address problem: Asymptomatic Subjective - Subjective Date of service: 04/20/19 Principal diagnosis: POD#1 s/p C/S, HBV+ Interval history: Sitting in chair, minimal bleeding, no complaints Patient reports: appetite normal, voiding normally, pain well controlled, flatus, ambulating normally Objective - Vital Signs Latest vital signs: Vital Signs Temp Pulse Resp BP BP Pulse Ox 04/20/19 04:00 98.8 F 79 18 121/78 04/20/19 01:34 18 04/20/19 01:04 18 04/20/19 00:00 98.4 F 69 16 101/74 04/19/19 21:01 18 04/19/19 20:59 18 04/19/19 20:31 18 04/19/19 19:30 98.7 F 77 18 114/78 04/19/19 14:45 97.7 F 77 20 111/67 100 04/19/19 14:35 88 24 113/63 100 04/19/19 14:20 88 19 124/75 98 04/19/19 14:05 78 24 110/84 100 04/19/19 13:50 68 24 113/72 100 04/19/19 13:45 70 20 109/64 100 04/19/19 13:42 97.6 F 66 20 106/57 100 04/19/19 10:12 98.1 F 16 Intake and Output 04/19/19 04/20/19 04/20/19 22:59 06:59 14:59 Intake Total 1440 1000 Output Total 900 Balance 540 1000 Intake: IV 1000 1000 D5lr 1,000 ml @ 125 mls/ 1000 1000 hr IV DIRECT LEIGH ANN Rx#: [id number] Oral 200 Intake, Free Water 240 Output: Urine 900 Indwelling Catheter 900 Other: Total, Intake Amount 200 Total, Output Amount 900 - Exam Breasts: Present: normal Cardiovascular: Present: Regular rate Lungs: Present: Clear to auscultation, Normal air movement Abdomen: Present: normal appearance, soft, normal bowel sounds Uterus: Present: fundal height below umbilicus. Absent: tenderness Extremities: Present: normal. Absent: tenderness, edema Incision: Present: dressed - Labs Labs: Abnormal lab results 04/15/19 04/20/19 Range/Units 09:38 02:22 Hgb 9.9 L (10.1-14.3) gm/dl Hct 29.7 L (30.3-42.9) % MCH 27 L (28-32) pg RDW 16.1 H (13.2-15.2) %
[2019-04-20] MEDS: NORCO 5/325 PO PRN ×2 (11:32→20:59)
[2019-04-21] MEDS: IBUPROFEN PO PRN ×2 (07:26)
[2019-04-21] MEDS: NORCO 5/325 PO PRN ×2 (07:26→19:01)
[2019-04-21] MEDS: FEOSOL PO SCH (09:37)
[2019-04-21] MEDS: PRENATAL VITAMIN PO SCH (09:37)
--- NOTE | 2019-04-21 10:09 | Progress Note ---
Assessment and Plan POD#2,s/p C/S, doing well, desires d/c home tomorrow - Patient Problems (1) delivery delivered Current Visit: Yes Status: Acute (2) Hepatitis B carrier Current Visit: No Status: Acute Plan to address problem: Instructed to make an appointment with ID in 2-3 weeks after discharge (3) Previous delivery, antepartum Current Visit: No Status: Acute Plan to address problem: Continue post c/s pathway (4) Anemia Current Visit: Yes Status: Acute Qualifiers: Other causes of anemia: acute posthemorrhagic Plan to address problem: Asymptomatic Subjective - Subjective Date of service: 04/21/19 Principal diagnosis: POD#2 s/p C/S, HBV+ Interval history: Sitting on side of bed with famil/visitor present. After family/visitors left her room, patient states minimal bleeding, no complaints Patient reports: appetite normal, voiding normally, pain well controlled, flatus Objective - Vital Signs Latest vital signs: Vital Signs Temp Pulse Resp BP Pulse Ox 04/21/19 07:26 14 04/21/19 00:24 97.9 F 77 20 118/79 100 04/20/19 17:11 97.6 F 67 16 110/65 100 04/20/19 12:28 98.0 F 77 16 122/71 98 Intake and Output 04/20/19 04/21/19 04/21/19 22:59 06:59 14:59 Intake Total 720 480 Balance 720 480 Intake: Oral 480 Intake, Free Water 240 480 Other: Total, Intake Amount 480 # Voids Indwelling Catheter 1 2 - Exam Breasts: Present: normal Lungs: Present: Normal air movement Abdomen: Present: soft. Absent: distention, tenderness Uterus: Present: firm, fundal height below umbilicus. Absent: tenderness Extremities: Present: normal. Absent: tenderness, edema Incision: Present: normal, dry, intact
[2019-04-22] MEDS: IBUPROFEN PO PRN ×2 (03:06→09:55)
[2019-04-22] MEDS: NORCO 5/325 PO PRN (06:00)
--- NOTE | 2019-04-22 06:39 | Discharge Summary ---
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 at Discharge: Lead Refiner Additional Physician Instructions: recently moved to [place] from [place], limited PNC, +HBV Primary care physician: JEANE WRIGHT Hospitalization Reason for admission: section Delivery: Procedure: repeat low transverse Episiotomy: none Laceration: none Incision: normal, dry, intact Other procedures: none complications: none Discharge diagnosis: IUP at term delivered Felicity baby: female Hospital course: uncomplicated repeat section Pt A&O X 3 Breast feeding NB VSS FF below umb Lochia scant Incision D&I Stable H&H Doing well s/p R C/S P: d/c today with instructions RTO 1 week Postop care Condition at discharge: Good Disposition: DC-01 TO HOME OR SELFCARE - Discharge Diagnoses (1) delivery delivered Status: Acute Comment: RTO 1 week postop Plan - Discharge Medications Prescriptions: Ibuprofen [Motrin 800 MG tab] 800 mg PO Q6HR PRN #30 tablet PRN Reason: Pain, Moderate (4-6) oxyCODONE /ACETAMINOPHEN [Percocet 5/325] 1 tab PO Q4HR #30 tab - Provider Discharge Summary Activity: routine, no sex for 6 weeks, no heavy lifting 4 weeks, no strenuous exercise Diet: routine Instructions: routine Additional instructions: [] Smoking cessation referral if applicable(refer to patient education folder for contact #) [] Refer to [facility]'s [facility] Booklet Call your doctor immediately for: * Fever > 100.5 * Heavy vaginal bleeding ( >1 pad per hour) * Severe persistent headache * Shortness of breath * Reddened, hot, painful area to leg or breast * Drainage or odor from incision. * Keep incision clean and dry at all times and follow doctor's instructions regarding bathing/showering - Follow up plan Follow up: CHASE PATTERSON MD [Staff Physician] - (Instructed to make an appointment with ID in 2-3 weeks after discharge) JEANE WRIGHT MD [Primary Care Provider] - 7 Days (Congratulations! please call [phone] to schedule your postoperative exam one week. Take medications as prescribed. Call with concerns. Call Dr. Evans:Instructed to make an appointment with ID in 2-3 weeks after discharge)
[2019-04-22] MEDS: FEOSOL PO SCH (09:55)
[2019-04-22] MEDS: PRENATAL VITAMIN PO SCH (09:55)
[2019-04-22 11:58] VITALS: BP 118/69
== END 2019-04-22 11:50 | disposition home or self-care (01) | DRG 765 ==
LOC: APU 09:06 → OB 15:24
PROVIDERS: ADMIT Obstetrics & Gynecology; ATTEND Obstetrics & Gynecology
PROC: 10D00Z1 Extraction of Products of Conception, Low, Open Approach (ICD-10-PCS; principal; 2019-04-19)
DX: O34.211 Maternal care for low transverse scar from previous cesarean delivery (principal); O98.42 Viral hepatitis complicating childbirth; B19.10 Unspecified viral hepatitis B without hepatic coma; O99.12 Other diseases of the blood and blood-forming organs and certain disorders involving the immune mechanism complicating childbirth; D62 Acute posthemorrhagic anemia; O99.62 Diseases of the digestive system complicating childbirth; O99.214 Obesity complicating childbirth; O90.81 Anemia of the puerperium; D56.3 Thalassemia minor; E66.9 Obesity, unspecified; K21.9 Gastro-esophageal reflux disease without esophagitis; Z3A.39 39 weeks gestation of pregnancy; Z37.0 Single live birth
CPT/HCPCS: 36415; 85014; 85018; 85025; 86850; 86900; 86901; G0378; A6250; C9250; J0690; J1170; J1885; J2250; J2405; J2590; J2765; J3010; J7120; J7121

== ENCOUNTER 2019-07-10 22:39 | Emergency (ER) | payer SELFPAY ==
[2019-07-10 23:10] VITALS: BP 124/76
[2019-07-10 23:41] LABS: HCG Qualitative,Urine Negative (Negative)
--- NOTE | 2019-07-10 23:46 | Emergency Department Report ---
ED Chest Pain HPI - General Chief Complaint: Chest Pain Stated Complaint: CHEST PAIN AND HEADACHE Time Seen by Provider: 07/10/19 23:20 Source: patient Mode of arrival: Ambulatory Limitations: No Limitations - History of Present Illness Initial Comments: Pt is a 24 y/o aaf who presents for cough productive green, wheezing, right lateral chest wall pain x 3 days. pt states symptoms worsen at night, with cough of noc fever, other symptoms include head congestion. pt denies sick contacts. there is no n/v , no dizziness, no lightheadedness, no back pain. No hx of asthma. MD Complaint: chest pain Onset/Timin -: days(s) Onset: during rest Pain Location: right chest Pain Radiation: none Severity: moderate Severity scale (0 -10): 4 Quality: aching Improves With: nothing Worsens With: other (environmental exposure , cough ) re: denies: nausea, vomting, diaphoresis, dyspnea Other Symptoms: cough, fever. denies: syncope, rash, acid taste in mouth, leg swelling, palpitations, burping Treatments Prior to Arrival: none - Related Data On Oral Contraceptives: No Home Medications Medication Instructions Recorded Confirmed Last Taken Ascorbic Acid [Vitamin C] 0 mg PO QDAY 03/14/19 04/19/19 03/14/19 09:00 1 Iron [Iron 18 MG TAB] 18 mg PO QDAY 03/14/19 04/19/19 03/14/19 09:00 1 Vit-Fe Fumar-FA [ 1 tab PO QDAY 03/14/19 04/19/19 03/14/19 09:00 Vitamin] Previous Rx's Medication Instructions Recorded Last Taken Type Ibuprofen [Motrin 800 MG tab] 800 mg PO Q6HR PRN #30 tablet 04/19/19 Unknown Rx oxyCODONE /ACETAMINOPHEN [Percocet 1 tab PO Q4HR #30 tab 04/19/19 Unknown Rx 5/325] ALBUTEROL Inhaler (OR & NICU) 2 puff IH QID PRN #1 inhalation 07/11/19 Unknown Rx [ProAir HFA Inhaler] Azithromycin [Zithromax Z-ALEX] 250 mg PO DAILY #6 tab 07/11/19 Unknown Rx Benzonatate [Tessalon Perles] 100 mg PO Q8HR #30 capsule 07/11/19 Unknown Rx Ibuprofen [Motrin 800 MG tab] 800 mg PO Q8HR PRN #30 tablet 07/11/19 Unknown Rx predniSONE [Deltasone] 40 mg PO QDAY 5 Days #10 tab 07/11/19 Unknown Rx Allergies Allergy/AdvReac Type Severity Reaction Status Date / Time No Known Allergies Allergy Verified 03/14/19 12:26 Heart Score - HEART Score History: Slightly suspicious EKG: Normal Age: < 45 Risk factors: No known risk factors Troponin: < normal limit HEART Score: 0 ED Review of Systems ROS: Stated complaint: CHEST PAIN AND HEADACHE Other details as noted in HPI Constitutional: denies: chills, fever Eyes: denies: eye pain, eye discharge, vision change ENT: denies: ear pain, throat pain Respiratory: denies: cough, shortness of breath, wheezing Cardiovascular: chest pain (right lateral chest wall pain with cough and palpation only ). denies: palpitations, dyspnea on exertion, paroxysmal nocturnal dyspnea Endocrine: no symptoms reported Gastrointestinal: denies: abdominal pain, nausea, diarrhea Genitourinary: as per HPI Musculoskeletal: denies: back pain, joint swelling, arthralgia Skin: denies: rash, lesions Neurological: denies: headache, weakness, numbness, paresthesias, confusion, vertigo Psychiatric: denies: anxiety, depression Hematological/Lymphatic: denies: easy bleeding, easy bruising ED Past Medical Hx - Past Medical History Hx Hypertension: No Hx Heart Attack/AMI: No Hx Congestive Heart Failure: No Hx Diabetes: No Hx Deep Vein Thrombosis: No Hx Renal Disease: No Hx Sickle Cell Disease: No Hx Arthritis: Yes Hx Seizures: No Hx Asthma: No Hx COPD: No Hx HIV: No Additional medical history: Congenital Hepatitis B - Surgical History Past Surgical History?: Yes Hx Pacemaker: No Hx Internal Defibrillator: No Additional Surgical History: Ectopic - Social History Smoking Status: Never Smoker Substance Use Type: None - Medications Home Medications: Home Medications Medication Instructions Recorded Confirmed Last Taken Type Ascorbic Acid [Vitamin C] 0 mg PO QDAY 03/14/19 04/19/19 03/14/19 09:00 History 1 Iron [Iron 18 MG TAB] 18 mg PO QDAY 03/14/19 04/19/19 03/14/19 09:00 History 1 Vit-Fe Fumar-FA [ 1 tab PO QDAY 03/14/19 04/19/19 03/14/19 09:00 History Vitamin] Ibuprofen [Motrin 800 MG tab] 800 mg PO Q6HR PRN #30 tablet 04/19/19 Unknown Rx oxyCODONE /ACETAMINOPHEN [Percocet 1 tab PO Q4HR #30 tab 04/19/19 Unknown Rx 5/325] ALBUTEROL Inhaler (OR & NICU) 2 puff IH QID PRN #1 inhalation 07/11/19 Unknown Rx [ProAir HFA Inhaler] Azithromycin [Zithromax Z-ALEX] 250 mg PO DAILY #6 tab 07/11/19 Unknown Rx Benzonatate [Tessalon Perles] 100 mg PO Q8HR #30 capsule 07/11/19 Unknown Rx Ibuprofen [Motrin 800 MG tab] 800 mg PO Q8HR PRN #30 tablet 07/11/19 Unknown Rx predniSONE [Deltasone] 40 mg PO QDAY 5 Days #10 tab 07/11/19 Unknown Rx ED Physical Exam - General Limitations: No Limitations General appearance: alert, in no apparent distress - Head Head exam: Present: atraumatic, normocephalic - Eye Eye exam: Present: normal appearance, PERRL, EOMI Pupils: Present: normal accommodation - ENT ENT exam: Present: normal orophraynx, mucous membranes moist, TM's normal bilaterally, normal external ear exam - Neck Neck exam: Present: normal inspection, full ROM. Absent: tenderness, meningismus, lymphadenopathy, thyromegaly - Respiratory Respiratory exam: Present: normal lung sounds bilaterally, chest wall tenderness (right anterior lateral chest wall ). Absent: respiratory distress, wheezes, rales, rhonchi, stridor - Cardiovascular Cardiovascular Exam: Present: regular rate, normal rhythm, normal heart sounds. Absent: systolic murmur, diastolic murmur, rubs, gallop - GI/Abdominal GI/Abdominal exam: Present: soft, normal bowel sounds. Absent: distended, tenderness, bruit, hernia - Rectal Rectal exam: Present: deferred - Extremities Exam Extremities exam: Present: normal inspection, full ROM. Absent: tenderness, pedal edema - Back Exam Back exam: Present: normal inspection, full ROM, tenderness. Absent: CVA tenderness (R), CVA tenderness (L), muscle spasm, rash noted - Neurological Exam Neurological exam: Present: alert, oriented X3, CN II-XII intact, normal gait - Psychiatric Psychiatric exam: Present: normal affect, normal mood - Skin Skin exam: Present: warm, dry, intact, normal color. Absent: rash ED Course Vital Signs 07/10/19 22:51 Temperature 98.6 F Pulse Rate 83 Respiratory 16 Rate Blood Pressure 124/76 O2 Sat by Pulse 100 Oximetry YVON score - Yvon Score Age > 65: (0) No Aspirin use within the Past 7 Days: (0) No 3 or more CAD Risk Factors: (0) No 2 or more Angina events in past 24 hrs: (0) No Known CAD with more than 50% Stenosis: (0) No Elevated Cardiac Markers: (0) No ST Deviation Greater than 0.5mm: (0) No YVON Score: 0 ED Medical Decision Making - Radiology Data Radiology results: report reviewed, image reviewed Patient: RANGEL POWELL MR# : [id number] : 1995 Acct:[id number] Age/Sex: 24 / F ADM Date: 07/10/19 Loc: ED Attending Dr: Ordering Physician: YONAS MOYA DO Date of Service: 07/10/19 Procedure(s): XR chest routine 2V Accession Number(s): [id number] cc: YONAS MOYA DO Fluoro Time In Minutes: CHEST 2 VIEWS INDICATION / CLINICAL INFORMATION: chestpain. COMPARISON: None available. FINDINGS: SUPPORT DEVICES: None. HEART / MEDIASTINUM: No significant abnormality. LUNGS / PLEURA: No significant pulmonary or pleural abnormality. No pneumothorax. ADDITIONAL FINDINGS: No significant additional findings. IMPRESSION: 1. No acute findings. Signer Name: Jay Gill MD Signed: 07/11/2019 12:00 AM Workstation Name: [id number] Transcribed By: Dictated By: Jay Gill MD Electronically Authenticated By: Jay Gill MD Signed Date/Time: 07/11/19 DD/ 0000 TD/TT: - Medical Decision Making This is bronchitis, cxr: normal no infiltrates no opacities, plan: albuterol inhaler, Zpack, prednisone, ibuprofen, follow up with pcp in 2-3 days, return to ed if symptoms worsen. Pt verbalized agreement and understanding of discharge plan. Critical care attestation.: If time is entered above; I have spent that time in minutes in the direct care of this critically ill patient, excluding procedure time. ED Disposition Clinical Impression: Bronchitis URI (upper respiratory infection) Qualifiers: URI type: unspecified URI Qualified Code(s): J06.9 - Acute upper respiratory infection, unspecified Disposition: TO HOME OR SELFCARE Is pt being admited?: No Does the pt Need Aspirin: No Condition: Stable Instructions: Upper Respiratory Infection (ED), Acute Bronchitis (ED) Prescriptions: predniSONE [Deltasone] 40 mg PO QDAY 5 Days #10 tab Ibuprofen [Motrin 800 MG tab] 800 mg PO Q8HR PRN #30 tablet PRN Reason: pain fever ALBUTEROL Inhaler (OR & NICU) [ProAir HFA Inhaler] 2 puff IH QID PRN #1 inhalation PRN Reason: Shortness Of Breath wheezing Benzonatate [Tessalon Perles] 100 mg PO Q8HR #30 capsule Azithromycin [Zithromax Z-ALEX] 250 mg PO DAILY #6 tab Referrals: [facility] [Outside] - 3-5 Days Forms: Work/School Release Form(ED) Time of Disposition: 00:39
--- NOTE | 2019-07-11 00:05 | XRay Report ---
CHEST 2 VIEWS INDICATION / CLINICAL INFORMATION: chestpain. COMPARISON: None available. FINDINGS: SUPPORT DEVICES: None. HEART / MEDIASTINUM: No significant abnormality. LUNGS / PLEURA: No significant pulmonary or pleural abnormality. No pneumothorax. ADDITIONAL FINDINGS: No significant additional findings. IMPRESSION: 1. No acute findings. Signer Name: Jay Gill MD Signed: 07/11/2019 12:00 AM Workstation Name: [id number]
[2019-07-11] MEDS ORDERED: IBUPROFEN 800 MG TAB PO ONE (00:31)
== END 2019-07-11 01:10 | disposition home or self-care (01) ==
LOC: ED 22:39
DX: J06.9 Acute upper respiratory infection, unspecified (principal); J40 Bronchitis, not specified as acute or chronic; M19.90 Unspecified osteoarthritis, unspecified site; Z79.899 Other long term (current) drug therapy
CPT/HCPCS: 71046; 81025; 93005; 93010

== ENCOUNTER 2019-07-28 03:55 | Emergency (ER) | payer MEDICAID, OTHER ==
--- NOTE | 2019-07-28 04:39 | XRay Report ---
CHEST 1 VIEW INDICATION / CLINICAL INFORMATION: Chest Pain. COMPARISON: 07/10/2019 FINDINGS: SUPPORT DEVICES: None. HEART / MEDIASTINUM: No significant abnormality. LUNGS / PLEURA: Both lungs are well-expanded and grossly clear. There are trace bilateral pleural eff usions now visualized. No evidence for pneumonia.. No pneumothorax. ADDITIONAL FINDINGS: No significant additional findings. IMPRESSION: 1. Trace bilateral pleural effusions. Signer Name: Lima Bryant MD Signed: 07/28/2019 4:34 AM Workstation Name: [id number]
--- NOTE | 2019-07-28 06:19 | Emergency Department Report ---
- General Chief Complaint: Chest Pain Stated Complaint: HEAD PRESSURE, CHEST PAIN Source: patient Mode of arrival: Ambulatory Limitations: No Limitations - History of Present Illness Initial Comments: Patient is a 24-year-old -[place] female with no past medical history presents to the ED with persistent nasal and sinus congestion, frontal sinus pressure, sore throat, dry cough with pleuritic chest pain for the last 1 week. Patient states that she had been taking Medrol Dosepak, albuterol inhaler as needed and ibuprofen for pain with no relief. Patient states that her symptoms are worse at night and sometimes she feels like she is suffocating making symptoms worse. Patient denies dizziness, fever, chills, nausea, vomiting, abdominal pain, diarrhea, neck pain, change in vision, syncope, dysuria, urinary frequency and urgency and back pain. MD Complaint: cough, rhinorrhea, nasal congestion, sinus pain -: Sudden, week(s) (1) Severity: moderate Severity scale (0 -10): 6 Quality: sharp, aching Consistency: constant Improves With: nothing Worsens With: nothing Context: sick contacts Associated Symptoms: denies other symptoms, headache, rhinorrhea, nasal congestion, sore throat, cough, chest pain, shortness of breath. denies: fever, chills, myalgias, diaphoresis, stiff neck, abdominal pain, nausea, vomiting, diarrhea, rash, hoarseness, ear pain - Related Data Home Medications Medication Instructions Recorded Confirmed Last Taken Ascorbic Acid [Vitamin C] 0 mg PO QDAY 03/14/19 04/19/19 03/14/19 09:00 1 Iron [Iron 18 MG TAB] 18 mg PO QDAY 03/14/19 04/19/19 03/14/19 09:00 1 Vit-Fe Fumar-FA [ 1 tab PO QDAY 03/14/19 04/19/19 03/14/19 09:00 Vitamin] Previous Rx's Medication Instructions Recorded Last Taken Type Ibuprofen [Motrin 800 MG tab] 800 mg PO Q6HR PRN #30 tablet 04/19/19 Unknown Rx oxyCODONE /ACETAMINOPHEN [Percocet 1 tab PO Q4HR #30 tab 04/19/19 Unknown Rx 5/325] ALBUTEROL Inhaler (OR & NICU) 2 puff IH QID PRN #1 inhalation 07/11/19 Unknown Rx [ProAir HFA Inhaler] Azithromycin [Zithromax Z-ALEX] 250 mg PO DAILY #6 tab 07/11/19 Unknown Rx Benzonatate [Tessalon Perles] 100 mg PO Q8HR #30 capsule 07/11/19 Unknown Rx Ibuprofen [Motrin 800 MG tab] 800 mg PO Q8HR PRN #30 tablet 07/11/19 Unknown Rx predniSONE [Deltasone] 40 mg PO QDAY 5 Days #10 tab 07/11/19 Unknown Rx Amoxicillin [Trimox CAP] 500 mg PO Q8H #30 capsule 07/28/19 Unknown Rx Brompheniramine/Pseudoephed/Dm 5 ml PO Q6H PRN #120 ml 07/28/19 Unknown Rx [Bromfed Dm Cough Syrup] Cetirizine HCl [Zyrtec 10mg tab] 10 mg PO DAILY #30 tablet 07/28/19 Unknown Rx hydrOXYzine PAMOATE [Vistaril] 25 mg PO Q6HR PRN #30 capsule 07/28/19 Unknown Rx Allergies Allergy/AdvReac Type Severity Reaction Status Date / Time No Known Allergies Allergy Verified 03/14/19 12:26 ED Review of Systems ROS: Stated complaint: HEAD PRESSURE, CHEST PAIN Other details as noted in HPI Constitutional: denies: chills, fever Eyes: denies: eye pain, eye discharge, vision change ENT: throat pain, congestion. denies: ear pain Respiratory: cough, shortness of breath, wheezing Cardiovascular: chest pain. denies: palpitations Endocrine: no symptoms reported Gastrointestinal: denies: abdominal pain, nausea, diarrhea Genitourinary: denies: urgency, dysuria, discharge Musculoskeletal: denies: back pain, joint swelling, arthralgia Skin: denies: rash, lesions Neurological: headache. denies: weakness, paresthesias Psychiatric: anxiety. denies: depression Hematological/Lymphatic: denies: easy bleeding, easy bruising ED Past Medical Hx - Past Medical History Previous Medical History?: Yes Hx Hypertension: No Hx Heart Attack/AMI: No Hx Congestive Heart Failure: No Hx Diabetes: No Hx Deep Vein Thrombosis: No Hx Renal Disease: No Hx Sickle Cell Disease: No Hx Arthritis: Yes Hx Seizures: No Hx Asthma: No Hx COPD: No Hx HIV: No Additional medical history: Congenital Hepatitis B - Surgical History Past Surgical History?: Yes Hx Pacemaker: No Hx Internal Defibrillator: No Additional Surgical History: Ectopic - Social History Smoking Status: Never Smoker Substance Use Type: None - Medications Home Medications: Home Medications Medication Instructions Recorded Confirmed Last Taken Type Ascorbic Acid [Vitamin C] 0 mg PO QDAY 03/14/19 04/19/19 03/14/19 09:00 History 1 Iron [Iron 18 MG TAB] 18 mg PO QDAY 03/14/19 04/19/19 03/14/19 09:00 History 1 Vit-Fe Fumar-FA [ 1 tab PO QDAY 03/14/19 04/19/19 03/14/19 09:00 History Vitamin] Ibuprofen [Motrin 800 MG tab] 800 mg PO Q6HR PRN #30 tablet 04/19/19 Unknown Rx oxyCODONE /ACETAMINOPHEN [Percocet 1 tab PO Q4HR #30 tab 04/19/19 Unknown Rx 5/325] ALBUTEROL Inhaler (OR & NICU) 2 puff IH QID PRN #1 inhalation 07/11/19 Unknown Rx [ProAir HFA Inhaler] Azithromycin [Zithromax Z-ALEX] 250 mg PO DAILY #6 tab 07/11/19 Unknown Rx Benzonatate [Tessalon Perles] 100 mg PO Q8HR #30 capsule 07/11/19 Unknown Rx Ibuprofen [Motrin 800 MG tab] 800 mg PO Q8HR PRN #30 tablet 07/11/19 Unknown Rx predniSONE [Deltasone] 40 mg PO QDAY 5 Days #10 tab 07/11/19 Unknown Rx Amoxicillin [Trimox CAP] 500 mg PO Q8H #30 capsule 07/28/19 Unknown Rx Brompheniramine/Pseudoephed/Dm 5 ml PO Q6H PRN #120 ml 07/28/19 Unknown Rx [Bromfed Dm Cough Syrup] Cetirizine HCl [Zyrtec 10mg tab] 10 mg PO DAILY #30 tablet 07/28/19 Unknown Rx hydrOXYzine PAMOATE [Vistaril] 25 mg PO Q6HR PRN #30 capsule 07/28/19 Unknown Rx ED Physical Exam - General Limitations: No Limitations General appearance: alert, in no apparent distress - Head Head exam: Present: atraumatic, normocephalic, normal inspection - Eye Eye exam: Present: normal appearance, PERRL, EOMI Pupils: Present: normal accommodation - ENT ENT exam: Present: normal orophraynx, mucous membranes moist, TM's normal bilaterally, normal external ear exam, other (grossly congested nasal passages; palpable frontal and maxillary sinus tenderness) - Neck Neck exam: Present: normal inspection, full ROM - Respiratory Respiratory exam: Present: normal lung sounds bilaterally. Absent: respiratory distress, wheezes, rales, rhonchi, chest wall tenderness, accessory muscle use, decreased breath sounds, prolonged expiratory - Cardiovascular Cardiovascular Exam: Present: regular rate, normal rhythm, normal heart sounds. Absent: systolic murmur, diastolic murmur, rubs, gallop - GI/Abdominal GI/Abdominal exam: Present: soft, normal bowel sounds. Absent: tenderness, guarding, hyperactive bowel sounds, hypoactive bowel sounds - Extremities Exam Extremities exam: Present: normal inspection, full ROM, normal capillary refill - Back Exam Back exam: Present: normal inspection, full ROM. Absent: tenderness, CVA tenderness (R), CVA tenderness (L), muscle spasm, paraspinal tenderness, vertebral tenderness - Neurological Exam Neurological exam: Present: alert, oriented X3, CN II-XII intact, normal gait, reflexes normal - Psychiatric Psychiatric exam: Present: normal affect, normal mood - Skin Skin exam: Present: warm, dry, intact, normal color. Absent: rash ED Course Vital Signs 07/28/19 03:58 Temperature 97.8 F Pulse Rate 73 Respiratory 20 Rate Blood Pressure 130/69 O2 Sat by Pulse 100 Oximetry ED Medical Decision Making - Radiology Data Radiology results: report reviewed, image reviewed Chest x-ray shows no acute cardiopulmonary abnormalities or pneumonitis. - Medical Decision Making This is a 24-year-old female who presented to the ED with worsening nasal and sinus congestion, frontal sinus pressure and headache, dry cough with wheezing and shortness of breath as well as pleuritic chest pain for one week. In the ED, patient is alert and oriented 3 in destruction and distress. Patient has been taking steroids, ibuprofen and albuterol inhaler as needed. Patient was discharged home on medications as her symptoms are likely due to acute sinusitis and worsening bronchitis. Chest x-ray shows no acute cardiopulmonary abnormalities or pneumonitis. Patient was advised to follow-up with her primary care physician in 7-10 days for reevaluation or return to the ED immediately if symptoms get worse. - Differential Diagnosis Sinusitis; URI; Bronchitis; Anxiety; Pleurisy Critical care attestation.: If time is entered above; I have spent that time in minutes in the direct care of this critically ill patient, excluding procedure time. ED Disposition Clinical Impression: Acute bacterial sinusitis, Acute upper respiratory infection, Anxiety as acute reaction to exceptional stress Acute bronchitis Qualifiers: Bronchitis organism: unspecified organism Qualified Code(s): J20.9 - Acute bronchitis, unspecified Disposition: TO HOME OR SELFCARE Is pt being admited?: No Does the pt Need Aspirin: No Condition: Stable Instructions: Acute Bronchitis (ED), Acute Bacterial Rhinosinusitis (ED), Upper Respiratory Infection (ED) Additional Instructions: Take medications with food, drink plenty of fluids and follow-up with your primary care physician in 5-7 days for reevaluation. Return to the ED immediately if symptoms get worse. Prescriptions: Brompheniramine/Pseudoephed/Dm [Bromfed Dm Cough Syrup] 5 ml PO Q6H PRN #120 ml PRN Reason: Cough Amoxicillin [Trimox CAP] 500 mg PO Q8H #30 capsule hydrOXYzine PAMOATE [Vistaril] 25 mg PO Q6HR PRN #30 capsule PRN Reason: Anxiety Cetirizine HCl [Zyrtec 10mg tab] 10 mg PO DAILY #30 tablet Referrals: PRIMARY CARE, [Primary Care Provider] - 3-5 Days Time of Disposition: 06:21 Print Language: SIN[place]
[2019-07-28 06:52] VITALS: BP 131/70
== END 2019-07-28 06:51 | disposition home or self-care (01) ==
LOC: ED 03:55
DX: J01.10 Acute frontal sinusitis, unspecified (principal); J20.9 Acute bronchitis, unspecified; J06.9 Acute upper respiratory infection, unspecified; F43.0 Acute stress reaction; Z79.899 Other long term (current) drug therapy; Z79.1 Long term (current) use of non-steroidal anti-inflammatories (NSAID)
CPT/HCPCS: 71045; 93005; 93010; 99283

== ENCOUNTER 2019-08-12 10:39 | Emergency (ER) | payer MEDICAID, OTHER ==
--- NOTE | 2019-08-12 11:22 | Emergency Department Report ---
ED Abdominal Pain HPI - General Chief Complaint: Abdominal Pain Stated Complaint: LFT SIDE PAIN/URINATION TORRES Time Seen by Provider: 08/12/19 11:10 Source: patient Mode of arrival: Ambulatory Limitations: No Limitations - History of Present Illness Initial Comments: Patient is 24 years old female with history of ectopic . Patient presented to the ER complaining off left flank and left lower quadrant pain for the last 2 days. Patient described her pain as constant. Patient stated that she is 2 days late on her period. She denied any vaginal bleeding or vaginal discharge. No fever or chills. MD Complaint: abdominal pain, flank pain - Related Data Home Medications Medication Instructions Recorded Confirmed Last Taken Ascorbic Acid [Vitamin C] 0 mg PO QDAY 03/14/19 04/19/19 03/14/19 09:00 1 Iron [Iron 18 MG TAB] 18 mg PO QDAY 03/14/19 04/19/19 03/14/19 09:00 1 Vit-Fe Fumar-FA [ 1 tab PO QDAY 03/14/19 04/19/19 03/14/19 09:00 Vitamin] Previous Rx's Medication Instructions Recorded Last Taken Type Ibuprofen [Motrin 800 MG tab] 800 mg PO Q6HR PRN #30 tablet 04/19/19 Unknown Rx oxyCODONE /ACETAMINOPHEN [Percocet 1 tab PO Q4HR #30 tab 04/19/19 Unknown Rx 5/325] ALBUTEROL Inhaler (OR & NICU) 2 puff IH QID PRN #1 inhalation 07/11/19 Unknown Rx [ProAir HFA Inhaler] Azithromycin [Zithromax Z-ALEX] 250 mg PO DAILY #6 tab 07/11/19 Unknown Rx Benzonatate [Tessalon Perles] 100 mg PO Q8HR #30 capsule 07/11/19 Unknown Rx Ibuprofen [Motrin 800 MG tab] 800 mg PO Q8HR PRN #30 tablet 07/11/19 Unknown Rx predniSONE [Deltasone] 40 mg PO QDAY 5 Days #10 tab 07/11/19 Unknown Rx Amoxicillin [Trimox CAP] 500 mg PO Q8H #30 capsule 07/28/19 Unknown Rx Brompheniramine/Pseudoephed/Dm 5 ml PO Q6H PRN #120 ml 07/28/19 Unknown Rx [Bromfed Dm Cough Syrup] Cetirizine HCl [Zyrtec 10mg tab] 10 mg PO DAILY #30 tablet 07/28/19 Unknown Rx hydrOXYzine PAMOATE [Vistaril] 25 mg PO Q6HR PRN #30 capsule 07/28/19 Unknown Rx Allergies Allergy/AdvReac Type Severity Reaction Status Date / Time No Known Allergies Allergy Verified 08/12/19 10:43 ED Review of Systems ROS: Stated complaint: LFT SIDE PAIN/URINATION TORRES Other details as noted in HPI Comment: All other systems reviewed and negative Constitutional: denies: chills, fever Cardiovascular: denies: chest pain, palpitations Gastrointestinal: abdominal pain. denies: nausea, vomiting Musculoskeletal: back pain Neurological: denies: headache, weakness ED Past Medical Hx - Past Medical History Hx Hypertension: No Hx Heart Attack/AMI: No Hx Congestive Heart Failure: No Hx Diabetes: No Hx Deep Vein Thrombosis: No Hx Renal Disease: No Hx Sickle Cell Disease: No Hx Arthritis: Yes Hx Seizures: No Hx Asthma: No Hx COPD: No Hx HIV: No Additional medical history: Congenital Hepatitis B - Surgical History Hx Pacemaker: No Hx Internal Defibrillator: No Additional Surgical History: Ectopic - Social History Smoking Status: Never Smoker Substance Use Type: None - Medications Home Medications: Home Medications Medication Instructions Recorded Confirmed Last Taken Type Ascorbic Acid [Vitamin C] 0 mg PO QDAY 03/14/19 04/19/19 03/14/19 09:00 History 1 Iron [Iron 18 MG TAB] 18 mg PO QDAY 03/14/19 04/19/19 03/14/19 09:00 History 1 Vit-Fe Fumar-FA [ 1 tab PO QDAY 03/14/19 04/19/19 03/14/19 09:00 History Vitamin] Ibuprofen [Motrin 800 MG tab] 800 mg PO Q6HR PRN #30 tablet 04/19/19 Unknown Rx oxyCODONE /ACETAMINOPHEN [Percocet 1 tab PO Q4HR #30 tab 04/19/19 Unknown Rx 5/325] ALBUTEROL Inhaler (OR & NICU) 2 puff IH QID PRN #1 inhalation 07/11/19 Unknown Rx [ProAir HFA Inhaler] Azithromycin [Zithromax Z-ALEX] 250 mg PO DAILY #6 tab 07/11/19 Unknown Rx Benzonatate [Tessalon Perles] 100 mg PO Q8HR #30 capsule 07/11/19 Unknown Rx Ibuprofen [Motrin 800 MG tab] 800 mg PO Q8HR PRN #30 tablet 07/11/19 Unknown Rx predniSONE [Deltasone] 40 mg PO QDAY 5 Days #10 tab 07/11/19 Unknown Rx Amoxicillin [Trimox CAP] 500 mg PO Q8H #30 capsule 07/28/19 Unknown Rx Brompheniramine/Pseudoephed/Dm 5 ml PO Q6H PRN #120 ml 07/28/19 Unknown Rx [Bromfed Dm Cough Syrup] Cetirizine HCl [Zyrtec 10mg tab] 10 mg PO DAILY #30 tablet 07/28/19 Unknown Rx hydrOXYzine PAMOATE [Vistaril] 25 mg PO Q6HR PRN #30 capsule 07/28/19 Unknown Rx ED Physical Exam - General Limitations: No Limitations General appearance: alert, in no apparent distress - Head Head exam: Present: atraumatic, normocephalic, normal inspection - ENT ENT exam: Present: normal exam, normal orophraynx, mucous membranes moist - Neck Neck exam: Present: normal inspection, full ROM. Absent: tenderness, meningismus - Respiratory Respiratory exam: Present: normal lung sounds bilaterally - Cardiovascular Cardiovascular Exam: Present: regular rate, normal rhythm, normal heart sounds - GI/Abdominal GI/Abdominal exam: Present: soft, normal bowel sounds. Absent: distended, tenderness, guarding, rebound, rigid, organomegaly, mass, bruit, pulsatile mass, hernia - Extremities Exam Extremities exam: Present: normal inspection, full ROM, normal capillary refill. Absent: pedal edema, calf tenderness - Back Exam Back exam: Present: normal inspection, full ROM. Absent: CVA tenderness (R), CVA tenderness (L) - Neurological Exam Neurological exam: Present: alert, oriented X3, CN II-XII intact - Skin Skin exam: Present: warm, intact, normal color ED Course Vital Signs 08/12/19 08/12/19 10:43 13:07 Temperature 98.3 F 97.9 F Pulse Rate 81 79 Respiratory 18 16 Rate Blood Pressure 132/71 Blood Pressure 120/83 [Right] O2 Sat by Pulse 100 99 Oximetry ED Medical Decision Making - Lab Data Result diagrams: 08/12/19 11:43 08/12/19 11:43 - Radiology Data Radiology results: report reviewed Referring Physician: ARIS VELAZQUEZ Patient Name: RANGEL POWELL Date of : 1995 Sex: Female Report Date: 2019-08-12 Report Status: Finalized Findings [facility] [address] [id number] Cat Scan Report Signed Patient: RANGEL POWELL MR# : [id number] : 1995 Acct:[id number] Age/Sex: 24 / F ADM Date: 08/12/19 Loc: ED Attending Dr: Ordering Physician: ARIS VELAZQUEZ Date of Service: 08/12/19 Procedure(s): CT abdomen pelvis wo con Accession Number(s): [id number] cc: ARIS Mccarty CAROLINE CT ABDOMEN AND PELVIS WITHOUT CONTRAST HISTORY: Abdominal pain, left flank pain for 10 hours COMPARISON: None. TECHNIQUE: Axial CT images were obtained through the abdomen and pelvis without IV contrast. Sagittal and coronal reformatted images. All CT scans at this location are performed using CT dose reduction for [employer] by means of automated exposure control. FINDINGS: CT ABDOMEN: Lung Bases: Clear. Liver: No significant abnormality. Biliary: No significant abnormality. Spleen: No significant abnormality. Unenlarged. Pancreas: No significant abnormality. Kidneys: An 8 x 9 x 16 mm calculus is identified in the proximal left ureter at the level of L2. There is moderate upstream left hydronephrosis. A 2 mm calyceal stone is identified in the mid left kidney. No right nephrolithiasis or hydronephrosis is identified. No focal renal lesion. Adrenals: No significant abnormality. Lymphatics: No lymphadenopathy. Vasculature: No significant abnormality. Bowel/Peritoneum: No significant abnormality. No free air. No free fluid. Normal appendix. CT PELVIS: : A 3.5 cm left ovarian cyst is identified. The uterus and right adnexa are unremarkable. Osseous Structures: No significant abnormality. Additional Findings: None IMPRESSION: Obstructing left ureteral stone as described above. 3.5 cm left ovarian cyst. Signer Name: Daniel José Jr, MD Signed: 08/12/2019 1:44 PM Workstation Name: [id number] Transcribed By: TTR Dictated By: DANIEL JOSÉ JR, MD Electronically Authenticated By: DANIEL JOSÉ JR, MD Signed Date/Time: 08/12/191343 DD/ 39 TD/TT: - Medical Decision Making Patient is 24 years old female with history of ectopic . Patient presented to the ER complaining off left flank and left lower quadrant pain for the last 2 days. Patient described her pain as constant. Patient stated that she is 2 days late on her period. She denied any vaginal bleeding or vaginal discharge. No fever or chills. Patient refused pain medicine in the emergency room stated that she is driving. Labs reviewed and is unremarkable. CT abdomen and pelvis show a left proximal ureter stone, obstructing with hydronephrosis. Patient given a prescription for [place] and Zofran and given a referral to a urologist and advised to return to the ER if symptoms are not improved. Critical care attestation.: If time is entered above; I have spent that time in minutes in the direct care of this critically ill patient, excluding procedure time. ED Disposition Clinical Impression: Kidney stone, Abdominal pain, Ureteric colic Disposition: DC-01 TO HOME OR SELFCARE Is pt being admited?: No Condition: Stable Instructions: Abdominal Pain (ED), Renal Colic (ED), Kidney Stones (ED) Referrals: ASHLEY WALTERS MD [Staff Physician] - 3-5 Days
[2019-08-12 12:05] LABS: Basophils % (Auto) 0.6 % (0.0-1.8); Eosinophils % (Auto) 0.4 % (0.0-4.3); Hematocrit 37.8 % (30.3-42.9); Hemoglobin 12.1 gm/dl (10.1-14.3); Lymphocytes # (Auto) 1.5 K/mm3 (1.2-5.4); Mean Corpuscular HGB Conc 32 % (30-34); Mean Corpuscular Volume 78 fl (79-97); Monocytes # (Auto) 0.8 K/mm3 (0.0-0.8); Monocytes % (Auto) 10.7 % (0.0-7.3); Platelet Count 184 K/mm3 (140-440); Red Blood Count 4.85 M/mm3 (3.65-5.03); Red Cell Distribution Width 15.9 % (13.2-15.2)
[2019-08-12 12:30] LABS: Albumin 4.5 g/dL (3.9-5); Calcium 9.6 mg/dL (8.4-10.2)
[2019-08-12 12:32] LABS: RBC,Urine < 1.0 /HPF (0.0-6.0); WBC,Urine < 1.0 /HPF (0.0-6.0)
[2019-08-12 12:34] LABS: Bilirubin,Urine Negative (Negative); Blood,Urine Negative (Negative); Color,Urine Yellow (Yellow); Protein,Urine <15 mg/dL mg/dL (Negative)
[2019-08-12 13:08] VITALS: BP 120/83
--- NOTE | 2019-08-12 13:49 | Cat Scan Report ---
CT ABDOMEN AND PELVIS WITHOUT CONTRAST HISTORY: Abdominal pain, left flank pain for 10 hours COMPARISON: None. TECHNIQUE: Axial CT images were obtained through the abdomen and pelvis without IV contrast. Sagittal and coronal reformatted images. All CT scans at this location are performed using CT dose reduction for [employer] by means of automated exposure control. FINDINGS: CT ABDOMEN: Lung Bases: Clear. Liver: No significant abnormality. Biliary: No significant abnormality. Spleen: No significant abnormality. Unenlarged. Pancreas: No significant abnormality. Kidneys: An 8 x 9 x 16 mm calculus is identified in the proximal left ureter at the level of L2. Ther e is moderate upstream left hydronephrosis. A 2 mm calyceal stone is identified in the mid left kidne y. No right nephrolithiasis or hydronephrosis is identified. No focal renal lesion. Adrenals: No significant abnormality. Lymphatics: No lymphadenopathy. Vasculature: No significant abnormality. Bowel/Peritoneum: No significant abnormality. No free air. No free fluid. Normal appendix. CT PELVIS: : A 3.5 cm left ovarian cyst is identified. The uterus and right adnexa are unremarkable. Osseous Structures: No significant abnormality. Additional Findings: None IMPRESSION: Obstructing left ureteral stone as described above. 3.5 cm left ovarian cyst. Signer Name: Daniel José Jr, MD Signed: 08/12/2019 1:44 PM Workstation Name: [id number]
== END 2019-08-12 14:54 | disposition home or self-care (01) ==
LOC: ED 10:39
DX: N20.2 Calculus of kidney with calculus of ureter (principal); M19.90 Unspecified osteoarthritis, unspecified site; Z79.899 Other long term (current) drug therapy
CPT/HCPCS: 36415; 74176; 80053; 81001; 84702; 85025

== ENCOUNTER 2019-08-17 13:47 | Emergency (ER) | payer MEDICAID, OTHER ==
--- NOTE | 2019-08-17 15:05 | Event Note ---
ED Screening Note Date of service: 08/17/19 Time: 15:03 ED Screening Note: 24 y o female presents to ED cc of worsening left flank pain x hx of kidney stone dz 3 days ago cc of worsening pain with n/v with no relief and unable to sleep. CT scan from 3 days ago shows obstructive stone at left 8x9x14 mm This initial assessment/diagnostic orders/clinical plan/treatment(s) is/are subject to change based on patients health status, clinical progression and re- assessment by fellow clinical providers in the ED. Further treatment and workup at subsequent clinical providers discretion. Patient/guardian urged not to elope from the ED as their condition may be serious if not clinically assessed and managed. Initial orders include: labs CT scan main side eval
[2019-08-17 16:11] LABS: Basophils % (Auto) 0.8 % (0.0-1.8); Eosinophils # (Auto) 0.1 K/mm3 (0.0-0.4); Eosinophils % (Auto) 1.3 % (0.0-4.3); Hematocrit 36.3 % (30.3-42.9); Hemoglobin 11.8 gm/dl (10.1-14.3); Lymphocytes # (Auto) 1.6 K/mm3 (1.2-5.4); Mean Corpuscular HGB Conc 32 % (30-34); Mean Corpuscular Volume 78 fl (79-97); Monocytes # (Auto) 0.5 K/mm3 (0.0-0.8); Monocytes % (Auto) 8.1 % (0.0-7.3); Platelet Count 210 K/mm3 (140-440); Red Blood Count 4.65 M/mm3 (3.65-5.03); Red Cell Distribution Width 15.3 % (13.2-15.2)
[2019-08-17] MEDS ORDERED: ONDANSETRON 4 MG/2 ML INJ IV ONE (16:32)
[2019-08-17] MEDS ORDERED: MORPHINE 4 MG/1 ML INJ IV ONE (16:32)
[2019-08-17] MEDS ORDERED: SODIUM CHLORIDE 0.9% 1000 ML 1,000 ML IV ONE (16:32)
--- NOTE | 2019-08-17 16:36 | Emergency Department Report ---
ED Female HPI - General Chief complaint: Abdominal Pain Stated complaint: KIDNEY STONES/CANT EAT Time Seen by Provider: 08/17/19 16:10 Source: patient Mode of arrival: Ambulatory Limitations: No Limitations - History of Present Illness Initial comments: 24-year-old -[place] female sent to the emergency room states she was here 4 days ago for kidney stones and return today with the same complaint. Patient stating that she only received 14 pills of Percocet and it has not touched her pain is only caused her to sleep. Patient was referred to urologist and states that she made an appointment to be seen by them when they told her she needed to have $300 down payment in to sit up a payment plan. Patient states that she did not have any money she does not work she recently had a baby. Patient reports that she has dysuria not able to sleep well hurts to move. LMP was 07/13/2019. Complaint: dysuria Onset/Timin -: days(s) Location: suprapubic Severity: severe Quality: sharp, stabbing Consistency: constant Improves with: none Worsens with: urination, movement Are you Now?: No Last Menstrual Period: 07/13/19 EDC: 04/18/20 Associated Symptoms: abdominal pain, nausea/vomiting, dysuria - Related Data Sexually active: Yes Home Medications Medication Instructions Recorded Confirmed Last Taken Ascorbic Acid [Vitamin C] 0 mg PO QDAY 03/14/19 04/19/19 03/14/19 09:00 1 Iron [Iron 18 MG TAB] 18 mg PO QDAY 03/14/19 04/19/19 03/14/19 09:00 1 Vit-Fe Fumar-FA [ 1 tab PO QDAY 03/14/19 04/19/19 03/14/19 09:00 Vitamin] Previous Rx's Medication Instructions Recorded Last Taken Type Ibuprofen [Motrin 800 MG tab] 800 mg PO Q6HR PRN #30 tablet 04/19/19 Unknown Rx oxyCODONE /ACETAMINOPHEN [Percocet 1 tab PO Q4HR #30 tab 04/19/19 Unknown Rx 5/325] ALBUTEROL Inhaler (OR & NICU) 2 puff IH QID PRN #1 inhalation 07/11/19 Unknown Rx [ProAir HFA Inhaler] Azithromycin [Zithromax Z-ALEX] 250 mg PO DAILY #6 tab 07/11/19 Unknown Rx Benzonatate [Tessalon Perles] 100 mg PO Q8HR #30 capsule 07/11/19 Unknown Rx Ibuprofen [Motrin 800 MG tab] 800 mg PO Q8HR PRN #30 tablet 07/11/19 Unknown Rx predniSONE [Deltasone] 40 mg PO QDAY 5 Days #10 tab 07/11/19 Unknown Rx Amoxicillin [Trimox CAP] 500 mg PO Q8H #30 capsule 07/28/19 Unknown Rx Brompheniramine/Pseudoephed/Dm 5 ml PO Q6H PRN #120 ml 07/28/19 Unknown Rx [Bromfed Dm Cough Syrup] Cetirizine HCl [Zyrtec 10mg tab] 10 mg PO DAILY #30 tablet 07/28/19 Unknown Rx hydrOXYzine PAMOATE [Vistaril] 25 mg PO Q6HR PRN #30 capsule 07/28/19 Unknown Rx Ondansetron [Zofran Odt] 4 mg PO Q8HR PRN #14 tab.rapdis 08/12/19 Unknown Rx oxyCODONE /ACETAMINOPHEN [Percocet 1 tab PO Q6HR PRN #14 tablet 08/12/19 Unknown Rx 5/325] Docusate Sodium [Colace] 100 mg PO BID PRN #20 capsule 08/17/19 Unknown Rx Tamsulosin [Flomax] 0.4 mg PO QDAY #5 cap 08/17/19 Unknown Rx oxyCODONE /ACETAMINOPHEN [Percocet 1 tab PO Q6HR PRN #12 tablet 08/17/19 Unknown Rx 5/325] Allergies Allergy/AdvReac Type Severity Reaction Status Date / Time No Known Allergies Allergy Verified 08/12/19 10:43 ED Review of Systems ROS: Stated complaint: KIDNEY STONES/CANT EAT Other details as noted in HPI Comment: All other systems reviewed and negative ED Past Medical Hx - Past Medical History Hx Hypertension: No Hx Heart Attack/AMI: No Hx Congestive Heart Failure: No Hx Diabetes: No Hx Deep Vein Thrombosis: No Hx Renal Disease: No Hx Sickle Cell Disease: No Hx Arthritis: Yes Hx Seizures: No Hx Asthma: No Hx COPD: No Hx HIV: No Additional medical history: Congenital Hepatitis B - Surgical History Hx Pacemaker: No Hx Internal Defibrillator: No Additional Surgical History: Ectopic - Social History Smoking Status: Never Smoker - Medications Home Medications: Home Medications Medication Instructions Recorded Confirmed Last Taken Type Ascorbic Acid [Vitamin C] 0 mg PO QDAY 03/14/19 04/19/19 03/14/19 09:00 History 1 Iron [Iron 18 MG TAB] 18 mg PO QDAY 03/14/19 04/19/19 03/14/19 09:00 History 1 Vit-Fe Fumar-FA [ 1 tab PO QDAY 03/14/19 04/19/19 03/14/19 09:00 History Vitamin] Ibuprofen [Motrin 800 MG tab] 800 mg PO Q6HR PRN #30 tablet 04/19/19 Unknown Rx oxyCODONE /ACETAMINOPHEN [Percocet 1 tab PO Q4HR #30 tab 04/19/19 Unknown Rx 5/325] ALBUTEROL Inhaler (OR & NICU) 2 puff IH QID PRN #1 inhalation 07/11/19 Unknown Rx [ProAir HFA Inhaler] Azithromycin [Zithromax Z-ALEX] 250 mg PO DAILY #6 tab 07/11/19 Unknown Rx Benzonatate [Tessalon Perles] 100 mg PO Q8HR #30 capsule 07/11/19 Unknown Rx Ibuprofen [Motrin 800 MG tab] 800 mg PO Q8HR PRN #30 tablet 07/11/19 Unknown Rx predniSONE [Deltasone] 40 mg PO QDAY 5 Days #10 tab 07/11/19 Unknown Rx Amoxicillin [Trimox CAP] 500 mg PO Q8H #30 capsule 07/28/19 Unknown Rx Brompheniramine/Pseudoephed/Dm 5 ml PO Q6H PRN #120 ml 07/28/19 Unknown Rx [Bromfed Dm Cough Syrup] Cetirizine HCl [Zyrtec 10mg tab] 10 mg PO DAILY #30 tablet 07/28/19 Unknown Rx hydrOXYzine PAMOATE [Vistaril] 25 mg PO Q6HR PRN #30 capsule 07/28/19 Unknown Rx Ondansetron [Zofran Odt] 4 mg PO Q8HR PRN #14 tab.rapdis 08/12/19 Unknown Rx oxyCODONE /ACETAMINOPHEN [Percocet 1 tab PO Q6HR PRN #14 tablet 08/12/19 Unknown Rx 5/325] Docusate Sodium [Colace] 100 mg PO BID PRN #20 capsule 08/17/19 Unknown Rx Tamsulosin [Flomax] 0.4 mg PO QDAY #5 cap 08/17/19 Unknown Rx oxyCODONE /ACETAMINOPHEN [Percocet 1 tab PO Q6HR PRN #12 tablet 08/17/19 Unkno wn Rx 5/325] ED Physical Exam - General Limitations: No Limitations General appearance: alert, in distress - Head Head exam: Present: atraumatic, normocephalic - Eye Eye exam: Present: normal appearance - ENT ENT exam: Present: mucous membranes moist - Respiratory Respiratory exam: Present: normal lung sounds bilaterally. Absent: respiratory distress - Cardiovascular Cardiovascular Exam: Present: regular rate, normal rhythm. Absent: systolic murmur, diastolic murmur, rubs, gallop - GI/Abdominal GI/Abdominal exam: Present: soft, tenderness, guarding. Absent: distended - Back Exam Back exam: Present: CVA tenderness (L) - Neurological Exam Neurological exam: Present: alert, oriented X3 - Psychiatric Psychiatric exam: Present: normal affect, normal mood - Skin Skin exam: Present: warm, dry, intact, normal color. Absent: rash ED Course Vital Signs 08/17/19 08/17/19 15:12 17:12 Temperature 98.8 F 98.2 F Pulse Rate 74 82 Respiratory 18 16 Rate Blood Pressure 142/91 Blood Pressure 152/89 [Right] O2 Sat by Pulse 100 100 Oximetry ED Medical Decision Making - Lab Data Result diagrams: 08/17/19 15:49 08/17/19 15:49 - Medical Decision Making 24-year-old -[place] female sent to the emergency room states she was here 4 days ago for kidney stones and return today with the same complaint. Patient stating that she only received 14 pills of Percocet and it has not touched her pain is only caused her to sleep. Patient was referred to urologist and states that she made an appointment to be seen by them when they told her she needed to have $300 down payment in to sit up a payment plan. Patient states that she did not have any money she does not work she recently had a baby. Patient reports that she has dysuria not able to sleep well hurts to move. LMP was 07/13/2019. Critical care attestation.: If time is entered above; I have spent that time in minutes in the direct care of this critically ill patient, excluding procedure time. ED Disposition Clinical Impression: Kidney stone Disposition: DC-01 TO HOME OR SELFCARE Is pt being admited?: No Does the pt Need Aspirin: No Condition: Stable Instructions: Abdominal Pain (ED), Kidney Stones (ED), Renal Colic (ED) Prescriptions: Docusate Sodium [Colace] 100 mg PO BID PRN #20 capsule PRN Reason: Constipation Tamsulosin [Flomax] 0.4 mg PO QDAY #5 cap oxyCODONE /ACETAMINOPHEN [Percocet 5/325] 1 tab PO Q6HR PRN #12 tablet PRN Reason: Pain Referrals: ASHLEY WALTERS MD [Staff Physician] - 3-5 Days
[2019-08-17 16:39] LABS: Alanine Aminotransferase 30 units/L (7-56); Albumin 4.1 g/dL (3.9-5); BUN/Creatinine Ratio 12; Blood Urea Nitrogen 14 mg/dL (7-17); Calcium 9.2 mg/dL (8.4-10.2); Hemolysis Index 8
[2019-08-17] MEDS ORDERED: KETOROLAC 30 MG/1 ML INJ IM ONE (17:02)
[2019-08-17 17:42] LABS: Bilirubin,Urine NEG (Negative); Blood,Urine MOD (Negative); Color,Urine Straw (Yellow); Mucus,Urine FEW /HPF; Protein,Urine <15 mg/dL mg/dL (Negative); Urobilinogen,Urine < 2.0 mg/dL (<2.0)
[2019-08-17 18:59] VITALS: BP 150/82
== END 2019-08-17 18:58 | disposition home or self-care (01) ==
LOC: ED 13:47
DX: N20.0 Calculus of kidney (principal); M19.90 Unspecified osteoarthritis, unspecified site
CPT/HCPCS: 36415; 80053; 81001; 84703; 85025; 96361; 96372; 96374; 99283; J1885; J2405; J7030

== ENCOUNTER 2019-10-28 16:51 | Emergency (ER) | payer SELFPAY ==
--- NOTE | 2019-10-28 19:51 | Emergency Department Report ---
Blank Doc - Documentation Documentation: 24-year-old female that presents with urinary changes and hematuria. This initial assessment/diagnostic orders/clinical plan/treatment(s) is/are subject to change based on patient's health status, clinical progression and re- assessment by fellow clinical providers in the ED. Further treatment and workup at subsequent clinical providers discretion. Patient/guardians urged not to elope from the ED as their condition may be serious if not clinically assessed and managed. Initial orders include: 1- Patient sent to [facility] for further evaluation and treatment 2- UA
[2019-10-28 21:48] LABS: Bilirubin,Urine NEG (Negative); Blood,Urine LG (Negative); Color,Urine Yellow (Yellow); Urobilinogen,Urine < 2.0 mg/dL (<2.0)
[2019-10-28 21:49] LABS: HCG Qualitative,Urine Negative (Negative)
[2019-10-28 21:50] LABS: RBC,Urine > 182.0 /HPF (0.0-6.0)
[2019-10-28] MEDS ORDERED: IBUPROFEN 800 MG TAB PO ONE (22:49)
[2019-10-28 22:59] VITALS: BP 122/88
--- NOTE | 2019-10-28 23:17 | Emergency Department Report ---
ED Female HPI - General Chief complaint: Urogenital-Female Stated complaint: BLEEDING, SOB Time Seen by Provider: 10/28/19 19:50 Source: patient Mode of arrival: Ambulatory Limitations: No Limitations - History of Present Illness Initial comments: Ms. Kwon is a 24-year-old female that presents with urinary changes and hematuria. she has hx of renal stonse, denies cva tenderness , no fever , no chills , no n/v, pt denies flow problem, advised she had CT Abd and Pelvis for renal stone 3 months ago and does not want another. symptoms today are e xcerbated by voiding, symptoms are relieved by nothing , she rates symptoms at 3/10 Onset/Timin -: days(s) Radiation: non-radiating Severity: moderate Severity scale (0 -10): 3 Quality: cramping Consistency: intermittent Improves with: none Worsens with: urination Are you Now?: No Last Menstrual Period: 10/27/19 EDC: 08/02/20 Associated Symptoms: dysuria, hematuria - Related Data Sexually active: No Home Medications Medication Instructions Recorded Confirmed Last Taken Ascorbic Acid [Vitamin C] 0 mg PO QDAY 03/14/19 04/19/19 03/14/19 09:00 1 Iron [Iron 18 MG TAB] 18 mg PO QDAY 03/14/19 04/19/19 03/14/19 09:00 1 Vit-Fe Fumar-FA [ 1 tab PO QDAY 03/14/19 04/19/19 03/14/19 09:00 Vitamin] Previous Rx's Medication Instructions Recorded Last Taken Type Ibuprofen [Motrin 800 MG tab] 800 mg PO Q6HR PRN #30 tablet 04/19/19 Unknown Rx oxyCODONE /ACETAMINOPHEN [Percocet 1 tab PO Q4HR #30 tab 04/19/19 Unknown Rx 5/325] Albuterol INH(or & Nicu Only) 2 puff IH QID PRN #1 inhalation 07/11/19 Unknown Rx [ProAir HFA Inhaler] Azithromycin [Zithromax Z-ALEX] 250 mg PO DAILY #6 tab 07/11/19 Unknown Rx Benzonatate [Tessalon Perles] 100 mg PO Q8HR #30 capsule 07/11/19 Unknown Rx Ibuprofen [Motrin 800 MG tab] 800 mg PO Q8HR PRN #30 tablet 07/11/19 Unknown Rx predniSONE [Deltasone] 40 mg PO QDAY 5 Days #10 tab 07/11/19 Unknown Rx Amoxicillin [Trimox CAP] 500 mg PO Q8H #30 capsule 07/28/19 Unknown Rx Brompheniramine/Pseudoephed/Dm 5 ml PO Q6H PRN #120 ml 07/28/19 Unknown Rx [Bromfed Dm Cough Syrup] Cetirizine HCl [Zyrtec 10mg tab] 10 mg PO DAILY #30 tablet 07/28/19 Unknown Rx hydrOXYzine PAMOATE [Vistaril] 25 mg PO Q6HR PRN #30 capsule 07/28/19 Unknown Rx Ondansetron [Zofran Odt] 4 mg PO Q8HR PRN #14 tab.rapdis 08/12/19 Unknown Rx oxyCODONE /ACETAMINOPHEN [Percocet 1 tab PO Q6HR PRN #14 tablet 08/12/19 Unknown Rx 5/325] Docusate Sodium [Colace] 100 mg PO BID PRN #20 capsule 08/17/19 Unknown Rx Tamsulosin [Flomax] 0.4 mg PO QDAY #5 cap 08/17/19 Unknown Rx oxyCODONE /ACETAMINOPHEN [Percocet 1 tab PO Q6HR PRN #12 tablet 08/17/19 Unknown Rx 5/325] Ciprofloxacin HCl [Ciprofloxacin 500 mg PO BID 10 Days #20 tablet 10/28/19 Unknown Rx TAB] Ketorolac [Toradol] 10 mg PO Q6H PRN #12 tablet 10/28/19 Unknown Rx Allergies Allergy/AdvReac Type Severity Reaction Status Date / Time No Known Allergies Allergy Verified 08/12/19 10:43 ED Review of Systems ROS: Stated complaint: BLEEDING, SOB Other details as noted in HPI Constitutional: no symptoms reported Eyes: denies: eye pain, eye discharge, vision change ENT: denies: ear pain, throat pain Respiratory: no symptoms reported Cardiovascular: as per HPI Endocrine: no symptoms reported Gastrointestinal: denies: abdominal pain, nausea, vomiting, diarrhea, melena Genitourinary: urgency, dysuria, frequency, hematuria. denies: discharge Musculoskeletal: denies: back pain, joint swelling, arthralgia, myalgia Skin: as per HPI Neurological: denies: headache, weakness, paresthesias, vertigo Psychiatric: denies: anxiety, depression Hematological/Lymphatic: denies: easy bleeding, easy bruising ED Past Medical Hx - Past Medical History Previous Medical History?: Yes Hx Hypertension: No Hx Heart Attack/AMI: No Hx Congestive Heart Failure: No Hx Diabetes: No Hx Deep Vein Thrombosis: No Hx Renal Disease: No Hx Sickle Cell Disease: No Hx Arthritis: Yes Hx Seizures: No Hx Asthma: No Hx COPD: No Hx HIV: No Additional medical history: Congenital Hepatitis B, Herpes - Surgical History Past Surgical History?: Yes Hx Pacemaker: No Hx Internal Defibrillator: No Additional Surgical History: Ectopic. C section - Social History Smoking Status: Never Smoker Substance Use Type: None - Medications Home Medications: Home Medications Medication Instructions Recorded Confirmed Last Taken Type Ascorbic Acid [Vitamin C] 0 mg PO QDAY 03/14/19 04/19/19 03/14/19 09:00 History 1 Iron [Iron 18 MG TAB] 18 mg PO QDAY 03/14/19 04/19/19 03/14/19 09:00 History 1 Vit-Fe Fumar-FA [ 1 tab PO QDAY 03/14/19 04/19/19 03/14/19 09:00 History Vitamin] Ibuprofen [Motrin 800 MG tab] 800 mg PO Q6HR PRN #30 tablet 04/19/19 Unknown Rx oxyCODONE /ACETAMINOPHEN [Percocet 1 tab PO Q4HR #30 tab 04/19/19 Unknown Rx 5/325] Albuterol INH(or & Nicu Only) 2 puff IH QID PRN #1 inhalation 07/11/19 Unknown Rx [ProAir HFA Inhaler] Azithromycin [Zithromax Z-ALEX] 250 mg PO DAILY #6 tab 07/11/19 Unknown Rx Benzonatate [Tessalon Perles] 100 mg PO Q8HR #30 capsule 07/11/19 Unknown Rx Ibuprofen [Motrin 800 MG tab] 800 mg PO Q8HR PRN #30 tablet 07/11/19 Unknown Rx predniSONE [Deltasone] 40 mg PO QDAY 5 Days #10 tab 07/11/19 Unknown Rx Amoxicillin [Trimox CAP] 500 mg PO Q8H #30 capsule 07/28/19 Unknown Rx Brompheniramine/Pseudoephed/Dm 5 ml PO Q6H PRN #120 ml 07/28/19 Unknown Rx [Bromfed Dm Cough Syrup] Cetirizine HCl [Zyrtec 10mg tab] 10 mg PO DAILY #30 tablet 07/28/19 Unknown Rx hydrOXYzine PAMOATE [Vistaril] 25 mg PO Q6HR PRN #30 capsule 07/28/19 Unknown Rx Ondansetron [Zofran Odt] 4 mg PO Q8HR PRN #14 tab.rapdis 08/12/19 Unknown Rx oxyCODONE /ACETAMINOPHEN [Percocet 1 tab PO Q6HR PRN #14 tablet 08/12/19 Unknown Rx 5/325] Docusate Sodium [Colace] 100 mg PO BID PRN #20 capsule 08/17/19 Unknown Rx Tamsulosin [Flomax] 0.4 mg PO QDAY #5 cap 08/17/19 Unknown Rx oxyCODONE /ACETAMINOPHEN [Percocet 1 tab PO Q6HR PRN #12 tablet 08/17/19 Unknown Rx 5/325] Ciprofloxacin HCl [Ciprofloxacin 500 mg PO BID 10 Days #20 tablet 10/28/19 Unknown Rx TAB] Ketorolac [Toradol] 10 mg PO Q6H PRN #12 tablet 10/28/19 Unknown Rx ED Physical Exam - General Limitations: No Limitations General appearance: alert, in no apparent distress - Head Head exam: Present: atraumatic, normocephalic - Eye Eye exam: Present: normal appearance, PERRL, EOMI Pupils: Present: normal accommodation - ENT ENT exam: Present: mucous membranes moist - Neck Neck exam: Present: normal inspection, full ROM. Absent: tenderness, lymphadenopathy - Respiratory Respiratory exam: Present: normal lung sounds bilaterally. Absent: respiratory distress, wheezes, stridor, chest wall tenderness - Cardiovascular Cardiovascular Exam: Present: regular rate, normal rhythm, normal heart sounds. Absent: systolic murmur, diastolic murmur, rubs, gallop - GI/Abdominal GI/Abdominal exam: Present: soft, normal bowel sounds. Absent: distended, tenderness, guarding, rebound, rigid, bruit, hernia - Rectal Rectal exam: Present: deferred - Extremities Exam Extremities exam: Present: normal inspection, full ROM, normal capillary refill. Absent: tenderness, pedal edema, joint swelling, calf tenderness - Back Exam Back exam: Present: normal inspection, full ROM. Absent: tenderness, CVA tenderness (R), CVA tenderness (L), muscle spasm, paraspinal tenderness - Neurological Exam Neurological exam: Present: alert, oriented X3, CN II-XII intact, normal gait, reflexes normal. Absent: motor sensory deficit - Psychiatric Psychiatric exam: Present: normal affect, normal mood - Skin Skin exam: Present: warm, dry, intact, normal color ED Course Vital Signs 10/28/19 10/28/19 17:23 22:56 Temperature 98.5 F 98.7 F Pulse Rate 74 74 Respiratory 18 15 Rate Blood Pressure 145/80 122/88 O2 Sat by Pulse 100 94 Oximetry ED Medical Decision Making - Lab Data Labs 10/28/19 21:26 Urine Color Yellow Urine Turbidity Slightly-cloudy Urine pH 7.0 Ur Specific [place] 1.011 Urine Protein 100 mg/dl Urine Glucose (UA) Neg Urine Ketones Neg Urine Blood Lg Urine Nitrite Neg Urine Bilirubin Neg Urine Urobilinogen < 2.0 Ur Leukocyte Esterase Sm Urine WBC (Auto) 17.0 H Urine RBC (Auto) > 182.0 Urine HCG, Qual Negative - Medical Decision Making UA positive for leuks WBCs some bacteria, this is a UTI but not likely pyelonephritis , there is no fevers no chills no CVA tenderness. Plan for Cipro, tramadol , follow-up with urology. Critical care attestation.: If time is entered above; I have spent that time in minutes in the direct care of this critically ill patient, excluding procedure time. ED Disposition Clinical Impression: UTI (urinary tract infection) Qualifiers: Urinary tract infection type: acute cystitis Hematuria presence: without hematuria Qualified Code(s): N30.00 - Acute cystitis without hematuria Disposition: TO HOME OR SELFCARE Is pt being admited?: No Does the pt Need Aspirin: No Condition: Stable Instructions: Urinary Tract Infection in Women (ED), Dysuria (ED) Prescriptions: Ciprofloxacin HCl [Ciprofloxacin TAB] 500 mg PO BID 10 Days #20 tablet Ketorolac [Toradol] 10 mg PO Q6H PRN #12 tablet PRN Reason: Pain Referrals: ASHLEY WALTERS MD [Staff Physician] - 3-5 Days Forms: Work/School Release Form(ED) Time of Disposition: 23:26
== END 2019-10-28 23:30 | disposition home or self-care (01) ==
LOC: ED 16:51
DX: N39.0 Urinary tract infection, site not specified (principal); M19.90 Unspecified osteoarthritis, unspecified site; Z98.890 Other specified postprocedural states; Z79.899 Other long term (current) drug therapy
CPT/HCPCS: 81001; 81025; 87086; 99283

== ENCOUNTER 2021-08-07 16:45 | Emergency (ER) | payer MEDICAID ==
[2021-08-07] MEDS ORDERED: SODIUM CHLORIDE 0.9% 1000 ML 1,000 ML IV ONE (17:17)
[2021-08-07] MEDS ORDERED: KETOROLAC 30 MG/1 ML INJ IV ONE (17:17)
--- NOTE | 2021-08-07 17:26 | Emergency Department Report ---
ED General Adult HPI - General Chief complaint: Weakness Stated complaint: WEAKNESS WITH HEADACHE Time Seen by Provider: 08/07/21 17:08 Source: patient Mode of arrival: Ambulatory Limitations: No Limitations - History of Present Illness Initial comments: 26 female with a past medical history of anemia currently on iron supplements presents to the ER today with complaints of generalized weakness, feeling shaky, left-sided headache. She states that "I am feeling like, outside of my body". She states her symptoms started 3 to 4 days ago. She also noticed last week that her hair was falling out in clumps. She states that she has been taking her iron supplements but intermittently. She states that she is concerned her symptoms may be related to her iron deficiency anemia. She did recently get off her menstrual cycle couple days ago. She reports no worsening bleeding than typical. She states she did have to have blood transfusion back in 2017 but that was when she was delivering her baby. She reports no syncope or near syncope, dizziness, chest pain, sob, abdominal pain, UTI symptoms or any additional symptoms at this time. MD Complaint: Generalized weakness, shaky, headache, hair falling out -: days(s) (3-4 days ago ) Severity scale (0 -10): 2 - Related Data Previous Rx's Medication Instructions Recorded Last Taken Type Albuterol Mdi (or & Nicu Only) 2 puff IH QID PRN #1 inhalation 07/11/19 Unknown Rx [ProAir HFA Inhaler] Ferrous Sulfate [Ferrous Sulfate 324 mg PO DAILY #30 tablet. 08/07/21 Unknown Rx 324 MG] Ketorolac [Toradol] 10 mg PO Q6H PRN #20 tablet 08/07/21 Unknown Rx Allergies Allergy/AdvReac Type Severity Reaction Status Date / Time No Known Allergies Allergy Verified 08/12/19 10:43 ED Review of Systems ROS: Stated complaint: WEAKNESS WITH HEADACHE Other details as noted in HPI Comment: All other systems reviewed and negative Constitutional: weakness. denies: chills, fever Eyes: denies: eye pain, eye discharge, vision change ENT: denies: ear pain, throat pain, dental pain, hearing loss, epistaxis, congestion Respiratory: denies: cough, orthopnea, shortness of breath, SOB with exertion, SOB at rest, wheezing Cardiovascular: denies: chest pain, palpitations, dyspnea on exertion, edema, syncope, paroxysmal nocturnal dyspnea Gastrointestinal: denies: abdominal pain, nausea, diarrhea Genitourinary: denies: urgency, dysuria, frequency, hematuria, discharge, abnormal menses, dyspareunia Musculoskeletal: denies: back pain, joint swelling, arthralgia Neurological: headache, other ("shaky" ). denies: numbness, paresthesias, confusion, abnormal gait, vertigo Psychiatric: denies: anxiety, depression, auditory hallucinations, visual hallucinations, homicidal thoughts, suicidal thoughts Hematological/Lymphatic: denies: easy bleeding, easy bruising ED Past Medical Hx - Past Medical History Hx Hypertension: No Hx Heart Attack/AMI: No Hx Congestive Heart Failure: No Hx Diabetes: No Hx Deep Vein Thrombosis: No Hx Renal Disease: No Hx Sickle Cell Disease: No Hx Arthritis: Yes Hx Seizures: No Hx Asthma: No Hx COPD: No Hx HIV: No Additional medical history: Congenital Hepatitis B, Herpes - Surgical History Hx Pacemaker: No Hx Internal Defibrillator: No Additional Surgical History: Ectopic. C section - Social History Smoking Status: Never Smoker - Medications Home Medications: Home Medications Medication Instructions Recorded Confirmed Last Taken Type Albuterol Mdi (or & Nicu Only) 2 puff IH QID PRN #1 inhalation 07/11/19 Unknown Rx [ProAir HFA Inhaler] Ferrous Sulfate [Ferrous Sulfate 324 mg PO DAILY #30 tablet.dr 08/07/21 Unknown Rx 324 MG] Ketorolac [Toradol] 10 mg PO Q6H PRN #20 tablet 08/07/21 Unknown Rx ED Physical Exam - General Limitations: No Limitations General appearance: alert, in no apparent distress - Head Head exam: Present: atraumatic, normocephalic, normal inspection - Eye Eye exam: Present: normal appearance, PERRL, EOMI Pupils: Present: normal accommodation - ENT ENT exam: Present: mucous membranes dry - Neck Neck exam: Present: normal inspection, full ROM - Respiratory Respiratory exam: Present: normal lung sounds bilaterally. Absent: respiratory distress, wheezes, rales, rhonchi, stridor - Cardiovascular Cardiovascular Exam: Present: regular rate, normal rhythm, normal heart sounds - GI/Abdominal GI/Abdominal exam: Present: soft. Absent: distended, tenderness, guarding, rebound - Neurological Exam Neurological exam: Present: alert, oriented X3, CN II-XII intact, normal gait - Psychiatric Psychiatric exam: Present: normal affect, normal mood - Skin Skin exam: Present: intact ED Course Vital Signs 08/07/21 08/07/21 08/07/21 16:47 17:29 19:58 Temperature 98.1 F Pulse Rate 79 75 Respiratory 16 16 16 Rate Blood Pressure 115/69 115/65 [Right] O2 Sat by Pulse 99 100 Oximetry ED Medical Decision Making - Lab Data Result diagrams: 08/07/21 17:24 08/07/21 17:24 - Medical Decision Making All labs reviewed and unremarkable Patient currently sitting in recliner eating chips with her son She is not toxic or ill appearing. She is not in any distress. She is neurologically intact with normal gait. Her VS are stable Discussed all results with patient. Exact cause of her symptoms unclear, but at this time there is no indication for any additional testing, or admission or specialist consult. Recommend that she follows up with her PCP and TRAVEL SPECIALIST. Patient expressed understanding of all instructions and agree with plan. Patient was stable at time of discharge. Critical care attestation.: If time is entered above; I have spent that time in minutes in the direct care of this critically ill patient, excluding procedure time. ED Disposition Clinical Impression: Weakness, Headache Disposition: 01 HOME / SELF CARE / HOMELESS Is pt being admited?: No Does the pt Need Aspirin: No Condition: Stable Instructions: General Headache Without Cause, [id number], Weakness Additional Instructions: I recommend that you take your ferrous sulfate as prescribed. A refill will be provided for you today. I recommend increasing your fluid intake. Take the toradol as prescribed for headaches. Follow up with your PCP and your OBGYN next week. Return to ED if worse. Prescriptions: Ferrous Sulfate [Ferrous Sulfate 324 MG] 324 mg PO DAILY #30 tablet. Ketorolac [Toradol] 10 mg PO Q6H PRN #20 tablet PRN Reason: Pain Referrals: PRIMARY CARE [Primary Care Provider] - 3-5 Days [facility] [Provider Group] - 3-5 Days Forms: Work/School Release Form(ED) Time of Disposition: 18:52
[2021-08-07 18:13] LABS: Basophils # (Auto) 0.1 K/mm3 (0.0-0.1); Eosinophils # (Auto) 0.1 K/mm3 (0.0-0.4); Hematocrit 37.1 % (30.3-42.9); Hemoglobin 11.7 gm/dl (10.1-14.3); Lymphocytes # (Auto) 2.6 K/mm3 (1.2-5.4); Lymphocytes % (Auto) 39.2 % (13.4-35.0); Mean Corpuscular HGB Conc 32 % (30-34); Mean Corpuscular Volume 73 fl (79-97); Monocytes # (Auto) 0.5 K/mm3 (0.0-0.8); Monocytes % (Auto) 8.1 % (0.0-7.3); Platelet Count 255 K/mm3 (140-440); Red Blood Count 5.07 M/mm3 (3.65-5.03); Red Cell Distribution Width 19.3 % (13.2-15.2)
[2021-08-07 18:36] LABS: Alanine Aminotransferase 15 units/L (7-56); Albumin 4.5 g/dL (3.9-5); BUN/Creatinine Ratio 13; Blood Urea Nitrogen 12 mg/dL (7-17); Hemolysis Index 0
[2021-08-07 19:06] LABS: Bilirubin,Urine NEG (Negative); Blood,Urine NEG (Negative); Color,Urine Yellow (Yellow); Mucus,Urine FEW /HPF; Protein,Urine <15 mg/dL mg/dL (Negative); Urobilinogen,Urine < 2.0 mg/dL (<2.0)
[2021-08-07 19:59] VITALS: BP 115/65
== END 2021-08-07 19:45 | disposition home or self-care (01) ==
LOC: ED 16:45
DX: R51.9 Headache, unspecified (principal); M62.81 Muscle weakness (generalized)
CPT/HCPCS: 36415; 80053; 81001; 84443; 84703; 85025; 96361; 96374; 99283; J1885

== ENCOUNTER 2021-08-23 11:45 | Emergency (ER) | payer MEDICAID ==
--- NOTE | 2021-08-23 13:18 | Emergency Department Report ---
ED Abdominal Pain HPI - General Chief Complaint: Abdominal Pain Stated Complaint: KIDNEY STONES Time Seen by Provider: 08/23/21 13:06 Source: patient Mode of arrival: Ambulatory Limitations: No Limitations - History of Present Illness Initial Comments: 26-year-old female with a past medical history of anemia and kidney stones presents to the ER today with complaints of left flank pain. She states that the pain started about a week ago. Initially was intermittent, but 3 days ago became constant. She states that the pain radiates over to her right lower back and sometimes into her abdomen. She reports nausea but no vomiting. She denies any UTI symptoms. She is currently on her menstrual cycle which she started yesterday. She states that this feels similar to her lower GI flareups of kidney stone. She states that the last time she had a bad flareup was about 2 years ago. She last saw her urologist about a month ago, she states that he did an outpatient renal ultrasound, and started her on Flomax which she had to take for about a week. He states that she did have lithotripsy 2 years ago for her stone. She reports a history of but denies any other abdominal surgeries. MD Complaint: flank pain -: week(s) (1) - Related Data Previous Rx's Medication Instructions Recorded Last Taken Type Albuterol Mdi (or & Nicu Only) 2 puff IH QID PRN #1 inhalation 07/11/19 Unknown Rx [ProAir HFA Inhaler] Acetaminophen/Codeine [Tylenol 1 tab PO Q6H PRN #12 tab 08/23/21 Unknown Rx /Codeine # 3 tab] methylPREDNISolone [Medrol 4MG 4 mg PO DAILY #1 tab.ds.pk 08/23/21 Unknown Rx DOSEPAK (21 tabs)] Allergies Allergy/AdvReac Type Severity Reaction Status Date / Time No Known Allergies Allergy Verified 08/12/19 10:43 ED Review of Systems ROS: Stated complaint: KIDNEY STONES Other details as noted in HPI Comment: All other systems reviewed and negative Constitutional: denies: chills, diaphoresis, fever, malaise, weakness Eyes: denies: eye pain, eye discharge, vision change ENT: denies: ear pain, throat pain Respiratory: denies: cough, shortness of breath, wheezing Cardiovascular: denies: chest pain, palpitations Gastrointestinal: abdominal pain, nausea, other (left flank pain). denies: vomiting, diarrhea, constipation, hematemesis, melena, hematochezia Genitourinary: denies: urgency, dysuria, frequency, hematuria, discharge, abn ormal menses, dyspareunia Musculoskeletal: denies: back pain, joint swelling, arthralgia, myalgia Skin: denies: rash, lesions, change in color, change in hair/nails, pruritus Neurological: denies: headache, weakness, numbness, paresthesias, confusion, abnormal gait, vertigo Psychiatric: denies: anxiety, depression, auditory hallucinations, visual hallucinations, homicidal thoughts, suicidal thoughts Hematological/Lymphatic: denies: easy bleeding, easy bruising, swollen glands ED Past Medical Hx - Past Medical History Hx Hypertension: No Hx Heart Attack/AMI: No Hx Congestive Heart Failure: No Hx Diabetes: No Hx Deep Vein Thrombosis: No Hx Renal Disease: No Hx Sickle Cell Disease: No Hx Arthritis: Yes Hx Seizures: No Hx Asthma: No Hx COPD: No Hx HIV: No Additional medical history: Congenital Hepatitis B, Herpes - Surgical History Hx Pacemaker: No Hx Internal Defibrillator: No Additional Surgical History: Ectopic. C section - Social History Smoking Status: Never Smoker - Medications Home Medications: Home Medications Medication Instructions Recorded Confirmed Last Taken Type Albuterol Mdi (or & Nicu Only) 2 puff IH QID PRN #1 inhalation 07/11/19 Unknown Rx [ProAir HFA Inhaler] Acetaminophen/Codeine [Tylenol 1 tab PO Q6H PRN #12 tab 08/23/21 Unknown Rx /Codeine # 3 tab] methylPREDNISolone [Medrol 4MG 4 mg PO DAILY #1 tab.ds.pk 08/23/21 Unknown Rx DOSEPAK (21 tabs)] ED Physical Exam - General Limitations: No Limitations General appearance: alert, in distress (Patient appears uncomfortable) - Head Head exam: Present: atraumatic, normocephalic - Eye Eye exam: Present: normal appearance, PERRL, EOMI Pupils: Present: normal accommodation - Neck Neck exam: Present: normal inspection, full ROM - Respiratory Respiratory exam: Present: normal lung sounds bilaterally. Absent: respiratory distress, wheezes, rales, rhonchi, stridor - Cardiovascular Cardiovascular Exam: Present: regular rate, normal rhythm, normal heart sounds - GI/Abdominal GI/Abdominal exam: Present: soft. Absent: distended, tenderness, guarding, rebound - Back Exam Back exam: Present: normal inspection, full ROM. Absent: CVA tenderness (R), CVA tenderness (L) - Neurological Exam Neurological exam: Present: alert, oriented X3, CN II-XII intact, normal gait - Psychiatric Psychiatric exam: Present: normal affect, normal mood - Skin Skin exam: Present: intact ED Course Vital Signs 08/23/21 12:35 Temperature 98.0 F Pulse Rate 82 Respiratory 16 Rate Blood Pressure 129/74 O2 Sat by Pulse 100 Oximetry ED Medical Decision Making - Lab Data Result diagrams: 08/23/21 14:04 08/23/21 14:04 - Radiology Data Radiology results: report reviewed CT scan without contrast of the abdomen pelvis shows no renal stones, no acute the abdomen and pelvis. Sclerosis involving the iliac endplates suggesting sacroiliitis. Critical care attestation.: If time is entered above; I have spent that time in minutes in the direct care of this critically ill patient, excluding procedure time. ED Disposition Clinical Impression: Left flank pain, Sacroiliitis Disposition: 01 HOME / SELF CARE / HOMELESS Is pt being admited?: No Does the pt Need Aspirin: No Condition: Stable Instructions: Abdominal Pain (ED), Flank Pain, Adult, Sacroiliac Joint Dysf unction Additional Instructions: I recommend that you take the Tylenol threes, and Medrol Dosepak as prescribed. CT scan shows inflammation at your sacroiliac joint/sacroiliitis. This could be contributing to your back pain and so I do recommend follow-up with Ortho senior training specialist listed on your discharge instructions or even your primary care doctor. Return to the ER if your symptoms changes or worsens in any way. Prescriptions: methylPREDNISolone [Medrol 4MG DOSEPAK (21 tabs)] 4 mg PO DAILY #1 tab.ds.pk Acetaminophen/Codeine [Tylenol /Codeine # 3 tab] 1 tab PO Q6H PRN #12 tab PRN Reason: Pain , Severe (7-10) Referrals: PRIMARY CARE, [Primary Care Provider] - 3-5 Days [facility] [Provider Group] - 3-5 Days Forms: Work/School Release Form(ED) Time of Disposition: 16:45
[2021-08-23] MEDS ORDERED: SODIUM CHLORIDE 0.9% 1000 ML 1,000 ML IV ONE (13:38)
[2021-08-23] MEDS ORDERED: KETOROLAC 30 MG/1 ML INJ IV ONE (13:38)
[2021-08-23] MEDS ORDERED: ONDANSETRON 4 MG/2 ML INJ IV ONE (13:38)
[2021-08-23 14:36] LABS: Bilirubin,Urine NEG (Negative); Color,Urine Yellow (Yellow)
[2021-08-23 14:37] LABS: Blood,Urine LG (Negative); Mucus,Urine FEW /HPF; Protein,Urine <15 mg/dL mg/dL (Negative)
[2021-08-23 14:53] LABS: Basophils % (Auto) 0.7 % (0.0-1.8); Eosinophils % (Auto) 0.7 % (0.0-4.3); Hematocrit 36.3 % (30.3-42.9); Hemoglobin 11.4 gm/dl (10.1-14.3); Lymphocytes # (Auto) 1.6 K/mm3 (1.2-5.4); Lymphocytes % (Auto) 33.7 % (13.4-35.0); Mean Corpuscular HGB Conc 31 % (30-34); Mean Corpuscular Volume 74 fl (79-97); Monocytes # (Auto) 0.7 K/mm3 (0.0-0.8); Monocytes % (Auto) 14.8 % (0.0-7.3); Platelet Count 218 K/mm3 (140-440); Red Cell Distribution Width 18.2 % (13.2-15.2)
[2021-08-23 14:59] LABS: Alanine Aminotransferase 15 units/L (7-56); BUN/Creatinine Ratio 11; Blood Urea Nitrogen 9 mg/dL (7-17); Calcium 9.1 mg/dL (8.4-10.2); Hemolysis Index 9
[2021-08-23 15:00] LABS: Bilirubin,Direct < 0.2 mg/dL (0-0.2)
--- NOTE | 2021-08-23 16:39 | Cat Scan Report ---
CT abdomen pelvis wo con INDICATION: left flank pain. COMPARISON: 08/12/2019 TECHNIQUE: Abdominal and pelvic CT exam performed. All CT scans at this location are performed using CT dose reduction for ALARA by means of automated exposure control. FINDINGS: CT ABDOMEN and PELVIS: Lung Bases: No significant abnormality. Liver: No significant abnormality. Biliary: No significant abnormality. Spleen: No significant abnormality. Pancreas: No significant abnormality. Adrenals: No significant abnormality. Kidneys: No significant abnormality. Lymphatics: No lymphadenopathy. Vasculature: No significant abnormality. Bowel: No significant abnormality. Normal appendix. Pelvis: No significant abnormality. Osseous Structures: No aggressive osseous lesion. Sclerosis involving the iliac greater than sacral e ndplates. Additional Findings: Rectus diastases. IMPRESSION: 1. No renal stones. No acute of the abdomen or pelvis. 2. Sclerosis involving the iliac endplates suggesting sacroiliitis. Signer Name: Juan Caldwell MD Signed: 08/23/2021 4:35 PM Workstation Name: [id number]
[2021-08-23 16:59] VITALS: BP 121/86
== END 2021-08-23 16:58 | disposition home or self-care (01) ==
LOC: ED 11:45
DX: R10.9 Unspecified abdominal pain (principal); M46.1 Sacroiliitis, not elsewhere classified
CPT/HCPCS: 36415; 74176; 80048; 80076; 81001; 84703; 85025; 96361; 96374; 96375; 99284; J1885; J2405; J7030; Q0162